=== PATIENT | female | born 1935 | race Caucasian/White ===

== ENCOUNTER → 2024-02-23 09:13 | Outpatient (REF) | payer MEDICARE, OTHER, SELFPAY ==
[2024-02-23 12:42] LABS: % Basophils 0.6 % (0-2); % Eosinophils 2.7 % (0-6); % Immature Granulocytes 0.4 % (0-0.5); % Lymphocytes 18.5 % (20.5-51.1); % Monocytes 10.9 % (1.7-9.3); % Neutrophils 66.9 % (42.2-75.2); Absolute Eosinophils 0.1 10^3/uL (0-0.7); Absolute Monocytes 0.6 10^3/uL (0.1-0.6); Absolute Neutrophils 3.4 10^3/uL (1.4-6.5); Hematocrit 31.2 % (37.0-47.0); Hemoglobin 9.7 g/dL (12.0-16.0); Mean Corp Hgb Conc. 31.1 g/dL (33.0-37.0); Mean Corpuscular Hgb 30.9 pg (27.0-31.0); Mean Corpuscular Volume 99.4 fL (81.0-99.0); Nucleated Red Blood Cells % 0 %; Platelet Count 140 10^3/uL (130-400); Red Blood Cell Count 3.14 10^6/uL (4.20-5.40); Red Cell Dist. Width 14.1 % (11.5-14.5); White Blood Cell Count 5.1 10^3/uL (4.8-10.8)
[2024-02-23 13:25] LABS: ALT (SGPT) 24 U/L (0-35); AST (SGOT) 27 U/L (14-36); Albumin 4.5 g/dl (3.5-5.0); Alkaline Phosphatase 93 U/L (38-126); Blood Urea Nitrogen 23 mg/dl (7-17); Calcium 10.4 mg/dl (8.4-10.2); Carbon Dioxide 33 mmol/L (22-30); Chloride 98 mmol/L (98-107); Glucose 93 mg/dl (70-99); HDL Cholesterol 45 mg/dl; Iron 74 ug/dl (37-170); LDL Cholesterol, Calculated 20 mg/dl; Potassium 4.2 mmol/L (3.5-5.1); Sodium 141 mmol/L (135-145); Total Bilirubin 0.8 mg/dl (0.2-1.3); Total Cholesterol 78 mg/dl (50-199); Total Protein 7.8 g/dl (6.3-8.2); Triglyceride 69 mg/dl (10-149); Very Low Density Lipoprotein 13 mg/dl (0-30); eGFR 40.05
[2024-02-23 13:34] LABS: Percent Saturation 40 % (20-50); Total Iron Binding Capacity 184 ug/dl (265-497)
[2024-02-23 13:54] LABS: TSH Reflex To Free T4 0.14 uIU/ml (0.47-4.68)
[2024-02-23 14:21] LABS: Free T4 1.81 ng/dl (0.78-2.19)
== END ==
LOC: HWLAB 09:13
PROVIDERS: ATTENDING PHYSICIAN Family Medicine
DX: R53.82 Chronic fatigue, unspecified (principal); R26.9 Unspecified abnormalities of gait and mobility; D64.9 Anemia, unspecified; I48.91 Unspecified atrial fibrillation; D68.69 Other thrombophilia; I50.41 Acute combined systolic (congestive) and diastolic (congestive) heart failure; L30.8 Other specified dermatitis
CPT/HCPCS: 36415; 80053; 80061; 82728; 83540; 83550; 84439; 84443; 85025

== ENCOUNTER → 2024-03-30 08:12 | Outpatient (REF) | payer MEDICARE, OTHER, SELFPAY ==
[2024-03-30 11:28] LABS: % Basophils 0.6 % (0-2); % Eosinophils 2.8 % (0-6); % Immature Granulocytes 0.4 % (0-0.5); % Monocytes 9.6 % (1.7-9.3); % Neutrophils 65.6 % (42.2-75.2); Absolute Eosinophils 0.1 10^3/uL (0-0.7); Absolute Monocytes 0.5 10^3/uL (0.1-0.6); Absolute Neutrophils 3.1 10^3/uL (1.4-6.5); Hematocrit 30.8 % (37.0-47.0); Hemoglobin 9.6 g/dL (12.0-16.0); Mean Corp Hgb Conc. 31.2 g/dL (33.0-37.0); Mean Corpuscular Hgb 30.6 pg (27.0-31.0); Mean Corpuscular Volume 98.1 fL (81.0-99.0); Mean Platelet Volume 10.9 fL (7.4-10.4); Nucleated Red Blood Cells % 0 %; Platelet Count 144 10^3/uL (130-400); Red Blood Cell Count 3.14 10^6/uL (4.20-5.40); Red Cell Dist. Width 13.6 % (11.5-14.5); White Blood Cell Count 4.7 10^3/uL (4.8-10.8)
[2024-03-30 12:04] LABS: Digoxin 0.7 ng/ml (0.8-2.0); Iron 54 ug/dl (37-170)
[2024-03-30 12:12] LABS: Percent Saturation 27 % (20-50); Total Iron Binding Capacity 198 ug/dl (265-497)
== END ==
LOC: HWLAB 08:12
PROVIDERS: ATTENDING PHYSICIAN Internal Medicine Cardiovascular Disease; FAMILY PHYSICIAN Family Medicine; REFERRING PHYSICIAN Specialist
DX: I49.5 Sick sinus syndrome (principal); I10 Essential (primary) hypertension; D50.0 Iron deficiency anemia secondary to blood loss (chronic)
CPT/HCPCS: 36415; 80162; 82728; 83540; 83550; 85025

== ENCOUNTER → 2024-06-08 08:29 | Outpatient (REF) | payer MEDICARE, OTHER, SELFPAY | LOC: HWRCS 08:29 | PROVIDERS: ATTENDING PHYSICIAN Internal Medicine Cardiovascular Disease; FAMILY PHYSICIAN Family Medicine | DX: I35.0 Nonrheumatic aortic (valve) stenosis (principal); I50.32 Chronic diastolic (congestive) heart failure | CPT/HCPCS: 93306 ==

== ENCOUNTER → 2024-06-08 14:03 | Outpatient (REF) | payer MEDICARE, OTHER, SELFPAY | LOC: RAD 14:03 | PROVIDERS: ATTENDING PHYSICIAN Internal Medicine Cardiovascular Disease; FAMILY PHYSICIAN Family Medicine | DX: R60.0 Localized edema (principal) | CPT/HCPCS: 93970 ==

== ENCOUNTER → 2024-07-02 09:59 | Outpatient (REF) | payer MEDICARE, OTHER, SELFPAY ==
[2024-07-02 13:14] LABS: Blood Urea Nitrogen 31 mg/dl (7-17); Calcium 10.3 mg/dl (8.4-10.2); Carbon Dioxide 35 mmol/L (22-30); Chloride 96 mmol/L (98-107); Glucose 104 mg/dl (70-99); Potassium 4.2 mmol/L (3.5-5.1); Sodium 139 mmol/L (135-145); eGFR 36.64
== END ==
LOC: HWLAB 09:59
PROVIDERS: ATTENDING PHYSICIAN Internal Medicine Cardiovascular Disease; FAMILY PHYSICIAN Family Medicine
DX: I07.1 Rheumatic tricuspid insufficiency (principal)
CPT/HCPCS: 36415; 80048

== ENCOUNTER → 2024-08-23 12:01 | Outpatient (REF) | payer MEDICARE, OTHER, SELFPAY ==
[2024-08-23 15:22] LABS: ALT (SGPT) 32 U/L (0-35); AST (SGOT) 34 U/L (14-36); Albumin 4.6 g/dl (3.5-5.0); Alkaline Phosphatase 70 U/L (38-126); Blood Urea Nitrogen 27 mg/dl (7-17); Calcium 10.3 mg/dl (8.4-10.2); Carbon Dioxide 30 mmol/L (22-30); Chloride 103 mmol/L (98-107); Glucose 90 mg/dl (70-99); HDL Cholesterol 41 mg/dl; Iron 68 ug/dl (37-170); LDL Cholesterol, Calculated 29 mg/dl; Potassium 4.4 mmol/L (3.5-5.1); Sodium 146 mmol/L (135-145); Total Bilirubin 0.7 mg/dl (0.2-1.3); Total Cholesterol 82 mg/dl (50-199); Total Protein 7.8 g/dl (6.3-8.2); Triglyceride 61 mg/dl (10-149); Very Low Density Lipoprotein 12 mg/dl (0-30); eGFR 40.05
[2024-08-23 15:29] LABS: % Basophils 0.9 % (0-2); % Eosinophils 3.4 % (0-6); % Immature Granulocytes 0.4 % (0-0.5); % Lymphocytes 19.6 % (20.5-51.1); % Monocytes 10.3 % (1.7-9.3); % Neutrophils 65.4 % (42.2-75.2); Absolute Eosinophils 0.2 10^3/uL (0-0.7); Absolute Lymphocytes 0.9 10^3/uL (1.2-3.4); Absolute Monocytes 0.5 10^3/uL (0.1-0.6); Hematocrit 29.2 % (37.0-47.0); Hemoglobin 9.5 g/dL (12.0-16.0); Mean Corp Hgb Conc. 32.5 g/dL (33.0-37.0); Mean Corpuscular Hgb 30.7 pg (27.0-31.0); Mean Corpuscular Volume 94.5 fL (81.0-99.0); Nucleated Red Blood Cells % 0 %; Platelet Count 138 10^3/uL (130-400); Red Blood Cell Count 3.09 10^6/uL (4.20-5.40); Red Cell Dist. Width 13.4 % (11.5-14.5); White Blood Cell Count 4.6 10^3/uL (4.8-10.8)
[2024-08-23 15:32] LABS: Percent Saturation 36 % (20-50); Total Iron Binding Capacity 185 ug/dl (265-497)
[2024-08-23 15:54] LABS: TSH Reflex To Free T4 0.23 uIU/ml (0.47-4.68)
[2024-08-23 15:56] LABS: Urine Albumin Trace (Neg - Trace); Urine Bilirubin Negative (Negative); Urine Character Clear (Clear); Urine Color Yellow; Urine Glucose 3+ (Negative); Urine Ketone Negative (Negative); Urine Leukocyte 2+ (Negative); Urine Nitrite Negative (Negative); Urine Occult Blood Negative (Negative); Urine Specific Gravity 1.015 (<1.030); Urine Urobilinogen Negative (Neg - 1+)
[2024-08-23 16:15] LABS: Urine Bacteria Many (Negative); Urine Red Blood Cell 0-2 /HPF (0-2)
[2024-08-23 16:20] LABS: Free T4 1.61 ng/dl (0.78-2.19)
[2024-08-23 16:28] LABS: Folate > 20.0 ng/ml (2.76-20); Vitamin B12 396 pg/ml (239-931)
== END ==
LOC: HWLAB 12:01
PROVIDERS: ATTENDING PHYSICIAN Family Medicine
DX: I10 Essential (primary) hypertension (principal); Z71.89 Other specified counseling; Z68.20 Body mass index [BMI] 20.0-20.9, adult; Z13.9 Encounter for screening, unspecified; E03.9 Hypothyroidism, unspecified; D64.9 Anemia, unspecified; E78.2 Mixed hyperlipidemia; I48.91 Unspecified atrial fibrillation; E53.8 Deficiency of other specified B group vitamins
CPT/HCPCS: 36415; 80053; 80061; 81003; 81015; 82607; 82728; 82746; 83540; 83550; 84439; 84443; 85025

== ENCOUNTER 2025-03-21 13:23 | Inpatient (IN) | payer MEDICARE, OTHER, SELFPAY ==
[2025-03-21] VITALS (23 sets, daily range): BP systolic 62–180; BP diastolic 47–73; BMI 18.7
[2025-03-21 10:04] LABS: % Basophils 0.5 % (0-2); % Eosinophils 3.1 % (0-6); % Immature Granulocytes 0.5 % (0-0.5); % Lymphocytes 14.8 % (20.5-51.1); % Monocytes 8.6 % (1.7-9.3); % Neutrophils 72.5 % (42.2-75.2); Absolute Eosinophils 0.2 10^3/uL (0-0.7); Absolute Lymphocytes 0.9 10^3/uL (1.2-3.4); Absolute Monocytes 0.5 10^3/uL (0.1-0.6); Absolute Neutrophils 4.2 10^3/uL (1.4-6.5); Hematocrit 29.1 % (37.0-47.0); Hemoglobin 9.2 g/dL (12.0-16.0); Mean Corp Hgb Conc. 31.6 g/dL (33.0-37.0); Mean Corpuscular Hgb 31.1 pg (27.0-31.0); Mean Corpuscular Volume 98.3 fL (81.0-99.0); Nucleated Red Blood Cells % 0 %; Platelet Count 141 10^3/uL (130-400); Red Blood Cell Count 2.96 10^6/uL (4.20-5.40); Red Cell Dist. Width 13.4 % (11.5-14.5); White Blood Cell Count 5.8 10^3/uL (4.8-10.8)
[2025-03-21 10:11] LABS: Blood Urea Nitrogen 35 mg/dl (7-17); Calcium 10.4 mg/dl (8.4-10.2); Carbon Dioxide 32 mmol/L (22-30); Chloride 103 mmol/L (98-107); Glucose 102 mg/dl (70-99); Potassium 4.6 mmol/L (3.5-5.1); Sodium 143 mmol/L (135-145)
--- NOTE | 2025-03-21 10:38 | ED.GENMED ---
History of Present Illness
General
Chief Complaint: Rectal Bleeding
Time Seen by Provider: 03/21/25 10:13
History of Present Illness
History of Present Illness:
89-year-old female with history of A-fib status post pacemaker no longer on anticoagulants presents the emergency department for evaluation of bright red rectal bleeding that began this morning. She had an intense urge to have a bowel movement and
noted a large volume of stool and blood intermixed, states that the blood was dark red in color. She reports generalized upper abdominal discomfort at this time which has been ongoing intermittently for the past 3 months. No associated fevers,
chills, sweats, vomiting, or recent diarrhea. Her blood thinner use was discontinued in October according to her daughter.
Past History
Past History
ED Past Medical History: Arrthythmia (Atrial fib), Valvular disease and Hypothyroidism
ED Past Surgical History: Appendectomy and Cardiac (Pacemaker)
Social History
Tobacco: Non-smoker
Alcohol: None
Personal:
Living: with family
Review of Systems
Review of Systems
Allergies reviewed?: Yes
All Other Systems: ROS reviewed and negative except as documented in HPI and ROS
Phy Exam
Physical Exam
Physical Exam:
GEN: Well appearing, NAD, WDWN
HEENT: Oral mucosa moist, no scleral icterus
Cardiac: Regular rate
Lung: No respiratory distress, no tachypnea
Abdomen: Soft, tenderness to the epigastrium noted
Rectum: Large amount of maroon stool in the rectal vault, heme positive
MSK: No gross deformity or injuries
Skin: Good color, no pallor or jaundice, no rashes
Neuro: AO x3, moves all extremities freely
Psych: Calm, cooperative
Course
Orders/Labs/Results
Orders:
Orders
03/21/25 09:43
Type+Screen Urgent
BMP [Basic Metabolic Panel] Urgent
Complete Blood Count/With Diff Urgent
Ferritin Urgent
Folate Urgent
Iron Urgent
Total Iron Binding Urgent
Vitamin B12 Urgent
Comment: ADD ON
03/21/25 10:37
CT Abd/pelvis Angio W/wo Iv Urgent
Comment:
Reason For Exam: rectal bleeding/abd pain
03/21/25 13:12
Admit/Transfer Patient As Directed
Co-Sign Provider:
Level of Care: Inpatient admission
Assign to:: IMU- Intermediate Care
Physician / Group: Audi
Diagnosis: GI Bleed
Reason for Hospitalization: GI Bleed
Expected length of stay greater than two midnights?: Yes
ELOS- Estimated Length of Stay in days: 3
I certify the patient meets the requirements for IP care: Yes
[facility] CONSULT Urgent
Consulting Provider: Blas Anand
Was physician already notified: Yes
Procedure being ordered, including laterality if applicable: coil embolization large bowel hemorrhage
Acknowledgement that appropriate orders are entered: Yes
PRN Pain Medication Management As Directed
May give lesser potent ordered pain med per pt: Yes
preference::
Protocol:: Medication orders for pain may be administered in a
manner that supports deferring to patient preference
when the pt is:
- Requesting an ordered lesser potent pain medication.
Least to most potent pain medications are defined
as: acetaminophen < NSAID < tramadol < opioids
(morphine, oxycodone, hydromorphone).
- Requesting a lesser dose of the same medication IF
ORDERED.
- Requesting a less intrusive route of administration
if both routes are prescribed by the provider (PO <
IV).
03/21/25 13:14
Code Status As Directed
Resuscitation Status: Full Code
03/21/25 13:17
Add On- LAB Urgent
Tests Added?: iron, ferritin, tibc, folate, vit b12
03/21/25 16:00
H&H Q6H
03/21/25 22:00
H&H Q6H
03/22/25 04:00
H&H Q6H
03/22/25 10:00
H&H Q6H
Abnormal Lab Results
03/21/25
09:43
RBC 2.96 L 10^6/uL
(4.20-5.40)
Hgb 9.2 L g/dL
(12.0-16.0)
Hct 29.1 L %
(37.0-47.0)
MCH 31.1 H pg
(27.0-31.0)
MCHC 31.6 L g/dL
(33.0-37.0)
MPV 11.0 H fL
(7.4-10.4)
Absolute Lymphs (auto) 0.9 L 10^3/uL
(1.2-3.4)
Lymphocytes % 14.8 L %
(20.5-51.1)
Carbon Dioxide 32 H mmol/L
(22-30)
BUN 35 H mg/dl
(7-17)
Creatinine 1.3 H mg/dL
(0.6-1.0)
Glucose 102 H mg/dl
(70-99)
Calcium 10.4 H mg/dl
(8.4-10.2)
TIBC 199 L ug/dl
(265-497)
03/21/25 09:43
03/21/25 09:43
Vital Signs
Initial and Last Documented VS:
Initial Vital Signs
Temp Pulse Resp BP Pulse Ox
97.8 F 59 18 160/66 92
03/21/25 09:03 03/21/25 09:03 03/21/25 09:03 03/21/25 09:03 03/21/25 09:03
Last Documented Vital Signs
Temp Pulse Resp BP Pulse Ox
98.2 F 62 19 140/57 95
03/21/25 14:55 03/21/25 14:55 03/21/25 14:55 03/21/25 14:55 03/21/25 14:55
MDM/Problems Addressed
MDM/Problems Addressed:
Case was reviewed with interventional radiology and the decision was made after discussion with the patient, she will go to IR for coil embolization and ultimately be admitted thereafter
*Critical Care Note
Total Time (30-74mins, 75-104mins- exclusive of procedures): Not Applicable
ED Attending Note
-
Portions of this chart may have been created with voice recognition software.� Occasional wrong word or��sound alike� substitutions may have occurred due to the inherent limitations of voice recognition software.
Discharge Plan
Departure
Patient Disposition: Admit
Date of Disposition: 03/21/25
Time of Disposition: 12:35
Presentation/result/management discussed w/ accepting MD/DO: Hospitalist
Discharge Problem:
Acute lower GI hemorrhage
Interventions
Interventions:
*Risk Screen - Suicide Last Done: 03/21/25 09:03
*General Assessment Last Done: 03/21/25 10:20
*Neglect/Abuse Screening Last Done: 03/21/25 09:03
*ED- Fall Risk Assessment Last Done: 03/21/25 09:09
*ED COVID-19 Vaccine History Last Done: 03/21/25 10:20
*Nursing Disposition Last Done: 03/21/25 14:52
GC-Rlvvtb-Jlfszidasl Assessment Last Done: 03/21/25 11:13
ED- Cardiac Assessment Last Done: 03/21/25 11:13
ED- Pulmonary Assessment Last Done: 03/21/25 11:13
Discharge Date and Time
Discharge Date/Time: 03/21/25 14:53
--- NOTE | 2025-03-21 12:39 | HPS.HSE ---
Family Physician
-
Family Physician: Gema Wall, DO
Chief Complaint
-
Rectal Bleeding
History of Present Illness
Patient is an 89 y/o female past medical history of paroxysmal atrial fibrillation no longer anticoagulation, chronic heart failure, hypertension, and chronic anemia who presents with rectal bleeding. Patient reports this morning she had an intense
urge to move her bowels. In the toilet she noted a large volume of stool mixed with blood described as dark red in color. Patient reports prior episodes of hemorrhoidal bleeding but notes this was much more blood than that. She reports just the
one episode of bleeding. She admits to mild epigastric abdominal discomfort on and off for the past few months, but notes it was worse today about the bleeding started.
Medical History
Past Medical History
Past Medical History: Reports Other
Additional Past Medical History:
Paroxysmal Atrial Fibrillation / Flutter / Tachycardia
Chronic HFpEF
Essential Hypertension
Hyperlipidemia
CKD Stage IIIB
Chronic Anemia
Post-Surgical Hypothyroidism
Depression
Past Surgical History: Reports Other
Additional Past Surgical History:
Permanent Pacemaker
Thyroidectomy
Hysterectomy
Appendectomy
Social History
Tobacco: Non-smoker
Alcohol: None
Living: Alone
Family History
Family History: Not pertinent
Allergies / Home Medications
Allergies reflects when Allergies were last updated in [facility].
Home Medications with original date entered in [facility]
Allergy/Medication List:
Allergies
Allergy/AdvReac Type Severity Reaction Status Date / Time
amoxicillin [From Augmentin] Allergy Hives Verified 09/17/22 21:22
clavulanic acid Allergy Hives Verified 09/17/22 21:22
[From Augmentin]
Home Medications
cholecalciferol (vitamin D3) 25 mcg (1,000 unit) tablet (Vitamin D3) 25 mcg PO QPM Supplement 09/12/22
digoxin 125 mcg (0.125 mg) tablet 125 mcg PO DAILY Heart disease/condition 09/12/22
docusate sodium 100 mg capsule (Stool Softener) 100 mg PO BID Constipation 09/12/22
latanoprost 0.005 % eye drops 1 drp RIGHT EYE HS Eye condition 09/12/22
levothyroxine 125 mcg tablet 125 mcg PO DAILY AT 0700 Thyroid 09/12/22
sertraline 100 mg tablet 100 mg PO HS Depression 09/12/22
atorvastatin 40 mg tablet 40 mg PO QPM 30 days #30 tabs 09/28/22
dapagliflozin propanediol 10 mg tablet (Farxiga) 10 mg PO DAILY 30 days #30 tabs 09/28/22
ferrous sulfate 325 mg (65 mg iron) tablet (FeroSul) 325 mg PO DAILY 100 days #100 tabs 09/28/22
furosemide 20 mg tablet 20 mg PO DAILYPRN PRN edema 03/31/23
diltiazem HCl 180 mg capsule,extended release 24 hr 180 mg PO DAILY 05/12/23
metoprolol tartrate 25 mg tablet 25 mg PO BID 03/21/25
Review of Systems
-
A 12 point ROS was completed and negative except as noted: Yes
Constitutional: Denies Fever
Respiratory: Denies Cough
Cardiac: Reports Palpitations (Last week); Denies Chest Pain
Physical Exam
Vital Signs
Vital Signs
Temp Pulse Resp BP Pulse Ox
97.8 F 64 16 127/48 92
03/21/25 09:03 03/21/25 12:00 03/21/25 12:00 03/21/25 12:00 03/21/25 09:03
Physical Exam
General: Comfortable and Conversant
HEENT: Anicteric and Moist mucous membranes
Respiratory: Clear and Non Labored Respirations
Cardiac: S1/S2, Regular Rhythm and Murmur
GI: Soft and Tender (Epigastric without rebound or guarding)
Musculoskeletal: No Clubbing, No Cyanosis and No Edema
Skin: Warm and Dry
Neuro: Awake, Alert, Oriented and Nonfocal/grossly intact
Psych: Calm
Laboratory Results
-
03/21/25 09:43
03/21/25 09:43
Data Reviewed
-
Lab Data: Labs Reviewed by me
Old Records: Reviewed
Impression/Plan
-
Acute Lower GI Bleed
-CTA positive for small volume active bleeding in the transverse colon
-IR planning for coil embolization this afternoon
-Continue NPO / IVFs
-Consult GI
Chronic Normocytic Anemia
-Hgb is currently stable but suspect will trend down in setting of GI bleed
-Check iron studies
-Blood consent obtained and scanned into chart
Paroxysmal Atrial Fibrillation / Flutter / Tachycardia s/p Permanent Pacemaker
-Patient has not been on anticoagulation since Oct 2023 due to bleeding/fall risk
-Continue digoxin, diltiazem and metoprolol
Chronic HFpEF
-Hold Lasix and Farxiga
-Monitor Daily Weights
Essential Hypertension
-Continue diltiazem and metoprolol with hold parameters
Hyperlipidemia
-Continue atorvastatin
Post-Surgical Hypothyroidism
-Continue levothyroxine
Depression
-Continue sertraline
DVT Proph: SCDs
Code Status: Full Code
--- NOTE | 2025-03-21 13:54 | CON.GI ---
Addendum entered and electronically signed by Chapito Finn MD 03/21/25 16:35:
I saw and examined the patient.
The HOT REPAIRMAN or PA's note was reviewed and I agree with the note.
Comment:
This patient is an 89-year-old woman with history of A-fib not on anticoagulation also with a history of duodenal AVMs who was admitted for bright red blood per rectum. She did have a bright red blood per rectum and abdominal pain which stopped
which has since stopped. A CTA did show slow mount of active bleeding in the transverse colon.
awake, no distress
impression:
GIB
anemia
plan:
- This patient was taken for interventional radiology embolization. I did discuss with Dr. Anand who performed the procedure. He states that there was no active bleeding at the time of the procedure. He also did review with me that CAT scan
which did definitively show only a small amount in the transverse colon.
- Follow hemoglobin
- Further evaluation and treatment based on clinical course.
Original Note:
Consultation
-
Date/Time Consultation Requested: 03/21/25 1339
Date/Time Consultation Performed: 03/21/25 1349
Requesting Provider: MITCHELL Gibson
Performing Provider: Dr. Finn/RADHA Lam
Reason for Consultation: lower GI Bleed
Medical History
Chief Complaint / HPI
Chief Complaint: rectal bleeding
History of Present Illness:
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
of bright red blood per rectum. We are asked to evaluate for acute lower GI bleed.The patient states that she awoke at 7 AM this morning with an urgency to have bowel movement. She states she almost did not make it to the bathroom. She states
that she had a very large episode of bright red blood. She has some abdominal discomfort across the upper mid abdomen that is a dull discomfort. Otherwise she denies any fevers, chills, nausea, vomiting, melena, dysphagia or dyne aphasia. No
early satiety or unintentional weight loss. She does state that intermittently prior to this episode she would have that vague discomfort that would not be isolated to any particular event. She did state that she was recently placed on Farxiga
with constipation. She started taking Colace twice a day with improvement of her constipation.
Past Medical History
Past Medical History: Other (HTN, hypothyroidism, CHF, Wt loss, Anemia, SVT, iron deficiency anemia, mild aortic stenosis, depression, A-fib (not on anticoagulation), duodenal angiectasia status post cautery with APC, nonocclusive CAD, pneumonia)
Past Surgical History: Other (Thyroidectomy, hysterectomy, appendectomy, pacemaker)
Social History
Tobacco: Non-Smoker
Alcohol: None
Drug: None
Personal: Single
Living: Alone
Family History
Family History: Other (Denies FH of CRC)
Allergies / Home Medications
Allergy/AdvReac Type Severity Reaction Status Date / Time
amoxicillin [From Augmentin] Allergy Hives Verified 09/17/22 21:22
clavulanic acid Allergy Hives Verified 09/17/22 21:22
[From Augmentin]
�Medication �Instructions �Recorded
cholecalciferol (vitamin D3) 25 25 mcg PO QPM Supplement 09/12/22
mcg (1,000 unit) tablet (Vitamin
D3)
digoxin 125 mcg (0.125 mg) tablet 125 mcg PO DAILY Heart 09/12/22
disease/condition
docusate sodium 100 mg capsule 100 mg PO BID Constipation 09/12/22
(Stool Softener)
latanoprost 0.005 % eye drops 1 drp RIGHT EYE HS Eye condition 09/12/22
levothyroxine 125 mcg tablet 125 mcg PO DAILY AT 0700 Thyroid 09/12/22
sertraline 100 mg tablet 100 mg PO HS Depression 09/12/22
atorvastatin 40 mg tablet 40 mg PO QPM 30 days #30 tabs 09/28/22
dapagliflozin propanediol 10 mg 10 mg PO DAILY 30 days #30 tabs 09/28/22
tablet (Farxiga)
ferrous sulfate 325 mg (65 mg 325 mg PO DAILY 100 days #100 tabs 09/28/22
iron) tablet (FeroSul)
furosemide 20 mg tablet 20 mg PO DAILYPRN PRN edema 03/31/23
diltiazem HCl 180 mg 180 mg PO DAILY 05/12/23
capsule,extended release 24 hr
metoprolol tartrate 25 mg tablet 25 mg PO BID 03/21/25
Review of Systems
-
All other systems: A 12 pt ROS was Negative except as stated above in HPI
Vital Signs
Temp Pulse Resp BP Pulse Ox
97.8 F 65 16 134/54 95
03/21/25 09:03 03/21/25 13:30 03/21/25 13:30 03/21/25 13:00 03/21/25 12:15
Physical Exam
Exam
General: No Apparent Distress
HEENT: Anicteric
Respiratory: Clear
Cardiac: Regular Rhythm
GI: Soft, Non Distended, Normal Bowel Sounds and Tender (Mild tenderness in the upper mid abdomen)
Rectal: Hem Positive (Rectal exam performed by ER showing large amount of maroon stool in the rectal vault. Heme positive)
Musculoskeletal: No Edema
Skin: Warm and Dry
Neuro: AO x 3
Psych: Calm
Results
WBC 5.8 10^3/uL (4.8-10.8) 03/21/25 09:43
Hgb 9.2 g/dL (12.0-16.0) L 03/21/25 09:43
Hct 29.1 % (37.0-47.0) L 03/21/25 09:43
MCV 98.3 fL (81.0-99.0) 03/21/25 09:43
Plt Count 141 10^3/uL (130-400) 03/21/25 09:43
Absolute Neuts (auto) 4.2 10^3/uL (1.4-6.5) 03/21/25 09:43
Sodium 143 mmol/L (135-145) 03/21/25 09:43
Potassium 4.6 mmol/L (3.5-5.1) 03/21/25 09:43
Chloride 103 mmol/L (98-107) 03/21/25 09:43
Carbon Dioxide 32 mmol/L (22-30) H 03/21/25 09:43
BUN 35 mg/dl (7-17) H 03/21/25 09:43
Creatinine 1.3 mg/dL (0.6-1.0) H 03/21/25 09:43
Calcium 10.4 mg/dl (8.4-10.2) H 03/21/25 09:43
Diagnostic Image Results:
CTA abdomen and pelvis with angio:
IMPRESSION:
Findings suspicious for small volume active bleeding in the distal transverse colon.
Large volume colonic stool including solid and liquid stool.
Cholelithiasis.
Small simple right renal cyst. Additional subcentimeter low-attenuation right renal lesion too small to characterize.
Prior GI Procedures:
EGD: 09/20/2022 EGD (Dr. Thrasher)
Impression: - Normal esophagus.
- Normal stomach.
- A single bleeding angioectasia in the duodenum.
Treated with argon plasma coagulation (APC).
- No specimens collected.
Colonoscopy: 09/27/2022 colonoscopy (Dr. Finn): - Redundant colon.
- Diverticulosis in the sigmoid colon.
- Internal hemorrhoids.
- No specimens collected.
Assessment / Plan
-
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
bright red blood per rectum. We are asked to evaluate for acute lower GI bleed. Patient with 1 episode of bright red blood per rectum. None since arrival. She has some mild upper abdominal discomfort. She states this has been occurring on and
off for couple months. Not associated with any other symptoms in particular. She is on oral iron. She is not on any anticoagulation or antiplatelet therapy. She denies any NSAIDs. Currently WBC 5.8, hemoglobin 9.2, hematocrit 21.9, platelets
141. Patient's baseline hemoglobin is in the 9 range. The patient is agreeable to blood products if needed. Sodium 143, potassium 4.6, BUN 35, creatinine 1.3, iron studies pending CTA of the abdomen and pelvis was performed that shows findings
suspicious for small volume active bleeding in the distal transverse colon. Large volume colonic stool including solid and liquid stool. (Other details from imaging will be provided above). Patient has been NPO since last evening. VSS, patient is
beta blocked.
Impression:
Active acute GI bleed with CT angio positive in the distal transverse colon.
Mild upper abdominal discomfort
Large volume colonic stool solid and liquid.
Constipation since starting Farxiga with stool softener as needed
Chronic anemia on oral iron
Plan:
-IR consulted and planned intervention
-Trend Hgb, transfuse to keep Hgb > 7
-Will continue to monitor patient.
-Colonoscopy (2021) in past (redundant) but with sigmoid diverticulosis.
-Will need bowel regimen after this is resolved.
-Further recommendations to be forthcoming.
-
-
Thank you for consultation and allowing me to participate in the patient's care. Please call the information security consultant GI physician during the after hours with any questions or concerns.
[2025-03-21 14:20] LABS: Iron 67 ug/dl (37-170)
[2025-03-21 14:29] LABS: Percent Saturation 33 % (20-50); Total Iron Binding Capacity 199 ug/dl (265-497)
--- NOTE | 2025-03-21 14:53 | EDRN ---
Blood consent tubed to IMU
[2025-03-21 15:04] LABS: INR 1.12; PT 14.9 Sec (11.4-14.6)
[2025-03-21 15:26] LABS: Vitamin B12 319 pg/ml (239-931)
--- NOTE | 2025-03-21 16:31 | W.PN.IRAD.PR ---
Procedure Note
-
Mesenteric arteriogram performed with celiac, SMA, QUENTIN imaging. No active gastrointestinal hemorrhage identified. 5 Fr Mynx closure device deployed at R CF artery access. No immediate complications. VSS throughout.
[2025-03-21] MEDS: D5/0.9% SODIUM CHLORIDE 1000 IV (16:54)
--- NOTE | 2025-03-21 16:55 | W.PN.UPDATE ---
Update Note
Progress Note Update
This is an addendum to the H&P written by Emilee Pinedo on 03/21/2025.� Patient seen and examined independently with PA.
89-year-old female past medical history of chronic iron deficiency anemia, constipation, HFpEF, SVT, paroxysmal atrial fibrillation/flutter with pacemaker recently on Eliquis discontinued since October, CKD, hypothyroidism, depression,
hypertension, presenting with bright red rectal bleeding starting this morning with upper abdominal discomfort.
Vital signs unremarkable.
Labs show hemoglobin of 9.2 which is stable.
CT abdomen pelvis angiogram shows small volume active bleeding in the distal transverse colon.� Large volume colonic stool.� Cholelithiasis.
Patient with acute lower GI bleeding from the transverse colon.� Patient currently hemodynamically stable with stable hemoglobin. IR consulted and to take�for coil embolization. NPO.� GI consulted.� Continue to monitor hemoglobin.� Hold Lasix.
[2025-03-21 17:13] LABS: Hematocrit 24.2 % (37.0-47.0)
--- NOTE | 2025-03-21 18:28 | PTCARENOTE ---
Escorted pt from [facility] to [id number] via monitored bed. Admission completed bedside. AF/25% Vpaced on tele- BP 150s/70s. POx drops to 87% when she falls asleep- 2L NC replaced. Lower abdominal pain 4/10 'tightness' noted- daughter stated she has had
that for a few months now. Incontinent of mod amt dark maroon clots, urine. NPO - swabs provided. IVF infusing as ordered. SCDs placed. Hgb noted next due at 2200.
[2025-03-21] MEDS: LIPITOR 40 MG PO (19:53)
[2025-03-21] MEDS: LOPRESSOR 25 MG PO (19:53)
[2025-03-21] MEDS: ZOLOFT 100 MG PO (21:13)
[2025-03-21] MEDS: XALATAN OPHTHALMIC SOLUTION 1 DROP RIGHT EYE (21:13)
[2025-03-21 22:22] LABS: Hematocrit 25.1 % (37.0-47.0); Hemoglobin 8.1 g/dL (12.0-16.0)
[2025-03-21] MEDS: PROTONIX 20 MG PO (22:43)
[2025-03-22] VITALS (53 sets, daily range): BP systolic 102–166; BP diastolic 43–104; BMI 18.0; BMI 18.5
--- NOTE | 2025-03-22 03:26 | PTCARENOTE ---
Assumed care for patient overnight, received report from jenny RN. V-paced on the monitor. Pt remains on 2L NC. SpO2 96%. Pt had one smear BM that was dark maroon in color. BPs maintaining, last BP 127/60. Pt denies lightheadedness, dizziness, or
fatigue. R groin site is dry and intact with scant old drainage, no signs of bleeding at the site. LE warm and pink, positive pulses. Pt voiding using the bedpan, clear yellow urine. IVF cont. Pt states she was having 'heart burn' RADHA Valdovinos made
aware, a one time order for protonix, pt had relief from symptoms. Pt utilizing the call boo appropriately, call boo is within reach.
[2025-03-22 05:09] LABS: Hemoglobin 7.3 g/dL (12.0-16.0); Mean Corp Hgb Conc. 31.7 g/dL (33.0-37.0); Mean Corpuscular Hgb 31.3 pg (27.0-31.0); Mean Corpuscular Volume 98.7 fL (81.0-99.0); Platelet Count 123 10^3/uL (130-400); Red Blood Cell Count 2.33 10^6/uL (4.20-5.40); Red Cell Dist. Width 13.6 % (11.5-14.5); White Blood Cell Count 5.5 10^3/uL (4.8-10.8)
[2025-03-22 05:14] LABS: Blood Urea Nitrogen 28 mg/dl (7-17); Calcium 9.3 mg/dl (8.4-10.2); Carbon Dioxide 30 mmol/L (22-30); Chloride 108 mmol/L (98-107); Estimated Creatinine Clearance 27 ml/min; Glucose 100 mg/dl (70-99); Potassium 4.3 mmol/L (3.5-5.1); Sodium 144 mmol/L (135-145); eGFR 48.63
--- NOTE | 2025-03-22 05:36 | PTCARENOTE ---
Hgb 7.3 this AM. RADHA Valdovinos made aware, no further orders at this time. Next H&H due for 1000. No bloody BM since last small smear. BP 139/56 HR 65. Weaned to 1L NC SpO2 96%. IVF cont.
[2025-03-22] MEDS: D5/0.9% SODIUM CHLORIDE 1000 IV ×2 (05:39→20:08)
[2025-03-22] MEDS: SYNTHROID 125 MCG PO (06:01)
--- NOTE | 2025-03-22 07:40 | PTCARENOTE ---
On walking rounds pt is asleep, V pacced with underlying AFIB. D5NS at 80 ml infusing as ordered. Pt is NPO may have meds.
--- NOTE | 2025-03-22 09:00 | PTCARENOTE ---
Pt refused am eds she is afraid they will give her epigastric pain
[2025-03-22 10:11] LABS: Hematocrit 22.6 % (37.0-47.0); Hemoglobin 7.2 g/dL (12.0-16.0)
[2025-03-22] MEDS: LOPRESSOR PO (12:44)
[2025-03-22] MEDS: CARDIZEM CD PO (12:44)
[2025-03-22] MEDS: LANOXIN 125 MCG PO (13:54)
--- NOTE | 2025-03-22 15:07 | CM ---
Addendum entered by Luciana Pacheco RN 03/22/25 15:19:
Additionally son Ismael lives a few minutes away from the patient.
He takes patient food shopping.
Original Note:
Patient with Dx Acute Lower GI Bleed s/p transfusions. O2 2L. Full liquids. Receiving IVF.
Met with patient and spoke with daughter Aby by phone;
the patient resides alone in a first floor apartment with ramp access.
The patient was independent in ADLs and ambulation using her SPC.
Patient reports unsteady when on feet, daughter describes ongoing balance problems.
The patient denies any falls.
DME - RW, SPC, CPAP (not using)
Prior [facility]
SNF - none
PCP - Gema Wall
Pharmacy - [facility], [place]
Message to Dr Hernandez requesting PT Eval.
Plan watch for any home O2 needs.
Plan follow up after seen by PT.
--- NOTE | 2025-03-22 15:11 | W.PN.GI.CBS2 ---
Today's Communication / Plan
-
Stat hemoglobin, then transfuse no matter what, ensure good IV access, full liquids for now
Assessment / Plan
-
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
bright red blood per rectum. We are asked to evaluate for acute lower GI bleed. Patient with 1 episode of bright red blood per rectum. None since arrival. She has some mild upper abdominal discomfort. She states this has been occurring on and
off for couple months. Not associated with any other symptoms in particular. She is on oral iron. She is not on any anticoagulation or antiplatelet therapy. She denies any NSAIDs. Currently WBC 5.8, hemoglobin 9.2, hematocrit 21.9, platelets
141. Patient's baseline hemoglobin is in the 9 range. The patient is agreeable to blood products if needed. Sodium 143, potassium 4.6, BUN 35, creatinine 1.3, iron studies pending CTA of the abdomen and pelvis was performed that shows findings
suspicious for small volume active bleeding in the distal transverse colon. Large volume colonic stool including solid and liquid stool. (Other details from imaging will be provided above). Patient has been NPO since last evening. VSS, patient is
beta blocked.
Impression:
Active acute GI bleed with CT angio positive in the distal transverse colon.
Mild upper abdominal discomfort
Large volume colonic stool solid and liquid.
Constipation since starting Farxiga with stool softener as needed
Chronic anemia on oral iron
03/21/2025: IR unable to find bleed found on CT angio
03/22/25: Hemoglobin on 03/21/2025 9.2, baseline in the nines
-- Yesterday evening hemoglobin 8.1, this morning 7.2
-- Will check stat hemoglobin now. Patient is hemodynamically stable. Will give 1 unit of blood after the hemoglobin drawn
-- Okay for full liquids right now
Last colonoscopy in 2021 with sigmoid diverticulosis otherwise redundant--
-- Ensure she has 2 good IVs
Subjective
Subjective
Date of Service: March 22, 2025
Patient has not had any bleeding all day until just recently around 3 PM. I witnessed the blood and it looks to be about 100 cc of dark maroon
Objective
Data Reviewed
Laboratory Data:
Laboratory Results
03/22/25 04:37
Laboratory Results
PT 14.9 Sec (11.4-14.6) H 03/21/25 14:42
INR 1.12 03/21/25 14:42
Vital Signs and I&O:
Vital Signs
Temp Pulse Resp BP Pulse Ox
98.2 F 62 21 122/45 96
03/22/25 12:23 03/22/25 13:54 03/22/25 12:30 03/22/25 12:30 03/22/25 12:30
I&O
03/21/25 03/22/25 03/23/25
06:59 06:59 06:59
Intake Total 960 / 960
Balance 960 / 960
Physical Exam
Physical Exam
HEENT: Anicteric
Pulmonary: Clear
GI: Soft, Non Distended and Non Tender
Extremities: No Edema
Neuro: Non Focal
[2025-03-22 15:51] LABS: Hemoglobin 6.4 g/dL (12.0-16.0)
--- NOTE | 2025-03-22 17:12 | PTCARENOTE ---
DR Mckenna aware of HGB
[2025-03-22] MEDS: LIPITOR 40 MG PO (17:33)
--- NOTE | 2025-03-22 17:40 | W.PN.HOSP.TC ---
Today's Communication/Plan
-
transfuse 1 unit now and check Hgb in AM
Assessment / Plan
Assessment / Plan
Acute Lower GI Bleed
-CTA positive for small volume active bleeding in the transverse colon, Hgb now down to 6.4, will transfuse 1 unit PRBC now
-diet now advanced to full liquids
-Consult GI
Chronic Normocytic Anemia
-Hgb is currently stable but suspect will trend down in setting of GI bleed
-Check iron studies Fe sat 33, Ferritin 173
-Blood consent obtained and scanned into chart
Paroxysmal Atrial Fibrillation / Flutter / Tachycardia s/p Permanent Pacemaker
-Patient has not been on anticoagulation since Oct 2023 due to bleeding/fall risk
-Continue digoxin, diltiazem and metoprolol
Chronic HFpEF
-Hold Lasix and Farxiga
-Monitor Daily Weights
Essential Hypertension
-Continue diltiazem and metoprolol with hold parameters
Hyperlipidemia
-Continue atorvastatin
Post-Surgical Hypothyroidism
-Continue levothyroxine
Depression
-Continue sertraline
DVT Proph: SCDs
Code Status: Full Code
Anticipated Discharge: > 48 hours
Subjective/Interval History
-
Date of Service: March 22, 2025
Pt is obviously weak
Objective Data
-
Labs:
Laboratory Results
03/22/25 03/22/25
10:03 15:35
Hgb 7.2 L 6.4 L*
Hct 22.6 L
Vital Signs:
Vital Signs
Temp Pulse Resp BP Pulse Ox
98.7 F 107 17 131/75 98
03/22/25 16:45 03/22/25 17:00 03/22/25 17:00 03/22/25 17:00 03/22/25 17:00
I&O
03/21/25 03/22/25 03/23/25
06:59 06:59 06:59
Intake Total 960 / 960 0 / 0
Balance 960 / 960 0 / 0
Review of Systems
-
History Source: Patient and Family (reviewed with dgt, Aby Hyatt)
Constitutional: Reports No Symptoms
EENT: Reports No Symptoms Reported
Respiratory: Reports No Symptoms
Cardiac: Reports No Symptoms; Denies Chest Pain
Abdomen/GI: Reports Bloody Stools
Genitourinary: Reports No Symptoms
Physical Exam
-
General: Well Developed and No Apparent Distress; Negative Respiratory Distress
HEENT: Normocephalic and Atraumatic
Respiratory: Clear to Auscultation; Negative Wheezes, Rales or Rhonchi
Cardiac: Regular Rhythm and S1/S2
GI: Soft, Nontender and Nondistended
Musculoskeletal: No Clubbing, No Cyanosis and No Edema
[2025-03-22] MEDS: LOPRESSOR 25 MG PO (20:58)
[2025-03-22] MEDS: XALATAN OPHTHALMIC SOLUTION 1 DROP RIGHT EYE (21:00)
[2025-03-22] MEDS: ZOLOFT 100 MG PO (21:00)
--- NOTE | 2025-03-22 23:16 | PTCARENOTE ---
1 unit PRBC completed around 2029. Pt remains afebrile. IVF cont. RADHA Aruna placed an order for repeat H&H at 0100. Will closely monitor. Pt AAOx3, drowsy. V-paced on the monitor. Weaned to 1L NC SpO2 98%. Assessment and vitals as charted. Call
boo within reach.
[2025-03-23] VITALS (47 sets, daily range): BP systolic 99–173; BP diastolic 40–159; PULSE 60; O2SAT 96; BMI 18.0
[2025-03-23 01:19] LABS: Hematocrit 25.2 % (37.0-47.0)
[2025-03-23 03:55] LABS: % Basophils 0.6 % (0-2); % Eosinophils 2.9 % (0-6); % Immature Granulocytes 0.4 % (0-0.5); % Lymphocytes 20.4 % (20.5-51.1); % Monocytes 10.2 % (1.7-9.3); % Neutrophils 65.5 % (42.2-75.2); Absolute Eosinophils 0.1 10^3/uL (0-0.7); Absolute Monocytes 0.5 10^3/uL (0.1-0.6); Absolute Neutrophils 3.1 10^3/uL (1.4-6.5); Hematocrit 24.9 % (37.0-47.0); Hemoglobin 8.1 g/dL (12.0-16.0); Mean Corp Hgb Conc. 32.5 g/dL (33.0-37.0); Mean Corpuscular Hgb 31.6 pg (27.0-31.0); Mean Corpuscular Volume 97.3 fL (81.0-99.0); Mean Platelet Volume 10.9 fL (7.4-10.4); Nucleated Red Blood Cells % 0 %; Platelet Count 121 10^3/uL (130-400); Red Blood Cell Count 2.56 10^6/uL (4.20-5.40); Red Cell Dist. Width 13.9 % (11.5-14.5); White Blood Cell Count 4.8 10^3/uL (4.8-10.8)
[2025-03-23 04:15] LABS: Blood Urea Nitrogen 22 mg/dl (7-17); Calcium 9.5 mg/dl (8.4-10.2); Carbon Dioxide 29 mmol/L (22-30); Chloride 110 mmol/L (98-107); Estimated Creatinine Clearance 30 ml/min; Glucose 98 mg/dl (70-99); Potassium 4.2 mmol/L (3.5-5.1); Sodium 145 mmol/L (135-145); eGFR 54.53
[2025-03-23] MEDS: SYNTHROID 125 MCG PO (06:18)
--- NOTE | 2025-03-23 08:09 | W.PN.GI.CBS2 ---
Today's Communication / Plan
-
Advance diet to low residue
Monitor stool output
Any increasing upper abdominal pain repeat CT scan with oral contrast
Assessment / Plan
-
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
bright red blood per rectum. We are asked to evaluate for acute lower GI bleed. Patient with 1 episode of bright red blood per rectum. None since arrival. She has some mild upper abdominal discomfort. She states this has been occurring on and
off for couple months. Not associated with any other symptoms in particular. She is on oral iron. She is not on any anticoagulation or antiplatelet therapy. She denies any NSAIDs. Currently WBC 5.8, hemoglobin 9.2, hematocrit 21.9, platelets
141. Patient's baseline hemoglobin is in the 9 range. The patient is agreeable to blood products if needed. Sodium 143, potassium 4.6, BUN 35, creatinine 1.3, iron studies pending CTA of the abdomen and pelvis was performed that shows findings
suspicious for small volume active bleeding in the distal transverse colon. Large volume colonic stool including solid and liquid stool. (Other details from imaging will be provided above). Patient has been NPO since last evening. VSS, patient is
beta blocked.
Impression:
Active acute GI bleed with CT angio positive in the distal transverse colon.
Mild upper abdominal discomfort
Large volume colonic stool solid and liquid.
Constipation since starting Farxiga with stool softener as needed
Chronic anemia on oral iron
03/21/2025: IR unable to find bleed found on CT angio
03/22/25: Hemoglobin on 03/21/2025 9.2, baseline in the nines
-- Yesterday evening hemoglobin 8.1, this morning 7.2
-- Will check stat hemoglobin now. Patient is hemodynamically stable. Will give 1 unit of blood after the hemoglobin drawn
-- Okay for full liquids right now
Last colonoscopy in 2021 with sigmoid diverticulosis otherwise redundant--
-- Ensure she has 2 good IVs
03/23/25: No further bleeding since the 1 episode yesterday and hemoglobin responded too well to the 1 unit of blood. The 6.4 was likely false
6.4-8.1 with 1 unit
Will advance diet to low residue
She does have chronic upper abdominal discomfort which she states has been for years.
Reviewed her imaging again this morning -she does have some hyperemia and wall thickening in the distal transverse colon which fits with her location of discomfort
-- If her discomfort continues or worsens would repeat CT scan with oral contrast
Subjective
Subjective
Date of Service: March 23, 2025
no stools since the one yesterday and hgb over corrected so doubt the 6.4 was accurate.
States weight loss over 4 yrs and upper abdominal tightness x2 yrs that is worsening
Objective
Data Reviewed
Laboratory Data:
Laboratory Results
03/23/25 03:38
03/23/25 03:38
Laboratory Results
PT 14.9 Sec (11.4-14.6) H 03/21/25 14:42
INR 1.12 03/21/25 14:42
Vital Signs and I&O:
Vital Signs
Temp Pulse Resp BP Pulse Ox
97.9 F 60 18 154/52 97
03/23/25 07:45 03/23/25 07:00 03/23/25 07:00 03/23/25 07:00 03/23/25 07:00
I&O
03/22/25 03/23/25 03/24/25
06:59 06:59 06:59
Intake Total 960 / 960 1640 / 1640
Balance 960 / 960 1640 / 1640
[2025-03-23] MEDS: LOPRESSOR 25 MG PO ×2 (08:34→20:42)
[2025-03-23] MEDS: CARDIZEM CD 180 MG PO (08:35)
--- NOTE | 2025-03-23 11:02 | CM ---
Patient chart reviewed
Per nursing she is on room air currently
PT/OT to eval
PLAN: await PT/OT evals
[2025-03-23] MEDS: LANOXIN 125 MCG PO (12:35)
--- NOTE | 2025-03-23 17:57 | W.PN.HOSP.TC ---
Today's Communication/Plan
-
diet advanced to low residue
follow CBC
Assessment / Plan
Assessment / Plan
Acute Lower GI Bleed
-CTA positive for small volume active bleeding in the transverse colon, Hgb was down to 6.4, transfused 1 unit PRBC
-diet now advanced to full liquids
-Consult GI
Chronic Normocytic Anemia
-Hgb is currently stable but suspect will trend down in setting of GI bleed
-Check iron studies Fe sat 33%, Ferritin 173
-Blood consent obtained and scanned into chart
Paroxysmal Atrial Fibrillation / Flutter / Tachycardia s/p Permanent Pacemaker
-Patient has not been on anticoagulation since Oct 2023 due to bleeding/fall risk
-Continue digoxin, diltiazem and metoprolol
Chronic HFpEF
-Hold Lasix and Farxiga
-Monitor Daily Weights
Essential Hypertension
-Continue diltiazem and metoprolol with hold parameters
Hyperlipidemia
-Continue atorvastatin
Post-Surgical Hypothyroidism
-Continue levothyroxine
Depression
-Continue sertraline
DVT Proph: SCDs
Code Status: Full Code
Anticipated Discharge: 24 - 48 hours
Subjective/Interval History
-
Date of Service: March 23, 2025
Appears more comfortable. Concerned about discomfort when swallowing
Objective Data
-
Vital Signs:
Vital Signs
Temp Pulse Resp BP Pulse Ox
98.4 F 60 20 131/54 94
03/23/25 15:36 03/23/25 12:35 03/23/25 09:30 03/23/25 09:30 03/23/25 11:21
I&O
03/22/25 03/23/25 03/24/25
06:59 06:59 06:59
Intake Total 960 / 960 1640 / 1640
Balance 960 / 960 1640 / 1640
Review of Systems
-
History Source: Patient and Coordinated Provider
Constitutional: Reports No Symptoms
EENT: Reports No Symptoms Reported
Respiratory: Reports No Symptoms
Cardiac: Reports No Symptoms; Denies Chest Pain
Abdomen/GI: Reports Bloody Stools
Genitourinary: Reports No Symptoms
Physical Exam
-
General: Well Developed, No Apparent Distress and Other (appears frail); Negative Respiratory Distress
HEENT: Normocephalic and Atraumatic
Respiratory: Clear to Auscultation; Negative Wheezes, Rales or Rhonchi
Cardiac: Regular Rhythm and S1/S2
GI: Soft, Nontender and Nondistended
Musculoskeletal: No Clubbing, No Cyanosis and No Edema
[2025-03-23] MEDS: LIPITOR 40 MG PO (18:40)
--- NOTE | 2025-03-23 19:41 | PTCARENOTE ---
day shift note. see nursing flowsheet. pt has had no bowel movements today. was oob and walked with PT without any dizziness. appetite good but pt c/o pain fom upper chest down to upper abdomen when swallowing. no other complaints noted. gi made
aware.
[2025-03-23] MEDS: XALATAN OPHTHALMIC SOLUTION 1 DROP RIGHT EYE (20:46)
[2025-03-23] MEDS: ZOLOFT 100 MG PO (20:46)
--- NOTE | 2025-03-23 23:21 | PTCARENOTE ---
Pt weaned to room air, SpO2 96%. V-paced on the monitor. Pt ambulating assistance x1 with RW. Pt has no complaints of dizziness, weakness, or lightheadedness. Pt ambulating to the bathroom. Pt complains of heartburn, pt states she 'does not normally
take anything' (for heartburn). Denture care and hygiene done. No BM but flatus. Bowel sounds present. Family at the bedside at change of shift. Pt rings appropriately, and has the call boo within reach.
[2025-03-24] VITALS (11 sets, daily range): BP systolic 121–152; BP diastolic 48–87; BMI 18.1
[2025-03-24] MEDS: SYNTHROID 125 MCG PO (05:29)
[2025-03-24 06:05] LABS: % Basophils 0.6 % (0-2); % Eosinophils 3.8 % (0-6); % Immature Granulocytes 0.2 % (0-0.5); % Lymphocytes 17.3 % (20.5-51.1); % Monocytes 10.2 % (1.7-9.3); % Neutrophils 67.9 % (42.2-75.2); Absolute Eosinophils 0.2 10^3/uL (0-0.7); Absolute Lymphocytes 0.9 10^3/uL (1.2-3.4); Absolute Monocytes 0.5 10^3/uL (0.1-0.6); Absolute Neutrophils 3.4 10^3/uL (1.4-6.5); Hematocrit 25.6 % (37.0-47.0); Hemoglobin 8.1 g/dL (12.0-16.0); Mean Corp Hgb Conc. 31.6 g/dL (33.0-37.0); Mean Corpuscular Hgb 30.9 pg (27.0-31.0); Mean Corpuscular Volume 97.7 fL (81.0-99.0); Mean Platelet Volume 10.7 fL (7.4-10.4); Nucleated Red Blood Cells % 0 %; Platelet Count 118 10^3/uL (130-400); Red Blood Cell Count 2.62 10^6/uL (4.20-5.40); Red Cell Dist. Width 13.5 % (11.5-14.5)
[2025-03-24] MEDS: CARDIZEM CD 180 MG PO (07:23)
[2025-03-24] MEDS: LOPRESSOR 25 MG PO ×2 (07:23→19:46)
--- NOTE | 2025-03-24 08:20 | W.PN.HOSP.TC ---
Today's Communication/Plan
-
transfer to tele
PT/OT
Assessment / Plan
Assessment / Plan
Acute Lower GI Bleed
-CTA positive for small volume active bleeding in the transverse colon, Hgb was down to 6.4, transfused 1 unit PRBC -->8.0-->8.1-->8.1
-diet now advanced to full liquids
-Consulted GI, discussed with Dr. Mckenna
Will transfer to tele
Chronic Normocytic Anemia
-Hgb is currently stable but suspect will trend down in setting of GI bleed
- iron studies Fe sat 33%, Ferritin 173
-Blood consent obtained and scanned into chart
Paroxysmal Atrial Fibrillation / Flutter / Tachycardia s/p Permanent Pacemaker
-Patient has not been on anticoagulation since Oct 2023 due to bleeding/fall risk
-Continue digoxin, diltiazem and metoprolol
left mid chest pain that worsens with eating. Dr. Mckenna to consider imaging study
Chronic HFpEF
-Hold Lasix and Farxiga
-Monitor Daily Weights
potential resumption next 24-48 hrs
Essential Hypertension
-Continue diltiazem and metoprolol with hold parameters
Hyperlipidemia
-Continue atorvastatin
Post-Surgical Hypothyroidism
-Continue levothyroxine
Depression
-Continue sertraline
DVT Proph: SCDs
Code Status: Full Code
Anticipated Discharge: 24 - 48 hours
Subjective/Interval History
-
Date of Service: March 24, 2025
Still with pain on swallowing, states 'feels like sandpaper'
Objective Data
-
Labs:
Laboratory Results
03/24/25
05:41
WBC 5.0
Hgb 8.1 L
Hct 25.6 L
Plt Count 118 L
Vital Signs:
Vital Signs
Temp Pulse Resp BP Pulse Ox
98.2 F 60 13 132/87 98
03/24/25 07:21 03/24/25 07:23 03/24/25 06:00 03/24/25 06:00 03/24/25 06:00
I&O
03/23/25 03/24/25 03/25/25
06:59 06:59 06:59
Intake Total 1640 / 1640 1380 / 1380
Balance 1640 / 1640 1380 / 1380
Review of Systems
-
History Source: Patient and Coordinated Provider
Constitutional: Reports No Symptoms
EENT: Reports No Symptoms Reported
Respiratory: Reports No Symptoms
Cardiac: Reports No Symptoms; Denies Chest Pain
Abdomen/GI: Reports Bloody Stools (prior to admission)
Genitourinary: Reports No Symptoms
Physical Exam
-
General: Well Developed and No Apparent Distress
HEENT: Normocephalic and Atraumatic
Respiratory: Clear to Auscultation; Negative Wheezes, Rales or Rhonchi
Cardiac: Regular Rhythm, S1/S2 and Other (chest wall over area where having pain is nontender to light pressure)
GI: Soft, Nontender and Nondistended
Musculoskeletal: No Clubbing, No Cyanosis and No Edema
--- NOTE | 2025-03-24 09:20 | W.PN.GI.CBS2 ---
Today's Communication / Plan
-
IV fluconazole, [employer] after midnight for esophagram tomorrow
Assessment / Plan
-
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
bright red blood per rectum. We are asked to evaluate for acute lower GI bleed. Patient with 1 episode of bright red blood per rectum. None since arrival. She has some mild upper abdominal discomfort. She states this has been occurring on and
off for couple months. Not associated with any other symptoms in particular. She is on oral iron. She is not on any anticoagulation or antiplatelet therapy. She denies any NSAIDs. Currently WBC 5.8, hemoglobin 9.2, hematocrit 21.9, platelets
141. Patient's baseline hemoglobin is in the 9 range. The patient is agreeable to blood products if needed. Sodium 143, potassium 4.6, BUN 35, creatinine 1.3, iron studies pending CTA of the abdomen and pelvis was performed that shows findings
suspicious for small volume active bleeding in the distal transverse colon. Large volume colonic stool including solid and liquid stool. (Other details from imaging will be provided above). Patient has been NPO since last evening. VSS, patient is
beta blocked.
Impression:
Active acute GI bleed with CT angio positive in the distal transverse colon.
Mild upper abdominal discomfort
Large volume colonic stool solid and liquid.
Constipation since starting with stool softener as needed
Chronic anemia on oral iron
03/21/2025: IR unable to find bleed found on CT angio
03/22/25: Hemoglobin on 03/21/2025 9.2, baseline in the nines
-- Yesterday evening hemoglobin 8.1, this morning 7.2
-- Will check stat hemoglobin now. Patient is hemodynamically stable. Will give 1 unit of blood after the hemoglobin drawn
-- Okay for full liquids right now
Last colonoscopy in 2021 with sigmoid diverticulosis otherwise redundant--
-- Ensure she has 2 good IVs
03/23/25: No further bleeding since the 1 episode yesterday and hemoglobin responded too well to the 1 unit of blood. The 6.4 was likely false
6.4-8.1 with 1 unit
Will advance diet to low residue
She does have chronic upper abdominal discomfort which she states has been for years.
Reviewed her imaging again this morning -she does have some hyperemia and wall thickening in the distal transverse colon which fits with her location of discomfort
-- If her discomfort continues or worsens would repeat CT scan with oral contrast
03/24/2025 patient's main complaint is now odynophagia with solid foods she points to her chest when swallowing
Patient states oropharyngeal candidiasis prior to coming in
I am going to empirically treat her with fluconazole and get an esophagram tomorrow, n.p.o. after midnight for esophagram
No further bleeding hemoglobin stable
Subjective
Subjective
Date of Service: March 24, 2025
No overt bleeding. No bowel movements in a couple of days. Hemoglobin stable
No issues with liquids but with solids she has odynophagia
Patient states she had oral thrush prior to coming in
Objective
Data Reviewed
Laboratory Data:
Laboratory Results
03/24/25 05:41
03/23/25 03:38
Laboratory Results
PT 14.9 Sec (11.4-14.6) H 03/21/25 14:42
INR 1.12 03/21/25 14:42
Vital Signs and I&O:
Vital Signs
Temp Pulse Resp BP Pulse Ox
98.2 F 60 13 132/87 98
03/24/25 07:21 03/24/25 07:23 03/24/25 06:00 03/24/25 06:00 03/24/25 06:00
I&O
03/23/25 03/24/25 03/25/25
06:59 06:59 06:59
Intake Total 1640 / 1640 1380 / 1380
Balance 1640 / 1640 1380 / 1380
Physical Exam
Physical Exam
HEENT: Anicteric and Other (No apparent thrush in the oropharynx)
GI: Soft and Non Tender
Extremities: No Edema
Neuro: Non Focal
[2025-03-24] MEDS: DIFLUCAN 200 MG 100 IV (09:36)
--- NOTE | 2025-03-24 10:39 | PTCARENOTE ---
patient assisted to the bathroom and had a small amount of clotted blood per rectum. no BM noted. still complains of epigastric discomfort exacerbates when eating. MD aware. tele orders noted. patient is back to bed. VSS. call boo within reach.
fall precautions reinforced
[2025-03-24] MEDS: LANOXIN 125 MCG PO (12:20)
[2025-03-24] MEDS: LIPITOR 40 MG PO (18:35)
[2025-03-24] MEDS: ZOLOFT 100 MG PO (22:12)
[2025-03-24] MEDS: XALATAN OPHTHALMIC SOLUTION 1 DROP RIGHT EYE (22:12)
--- NOTE | 2025-03-25 01:28 | PTCARENOTE ---
01:28 pt had medium, soft, formed stool with dark and dl red blood observed in toilet. Pts denies pain at this time , abd is firm on palpation, pt expresses this is not her norm. SCADA ENGINEER was in early at start of shift to assess.
[2025-03-25 03:08] VITALS: BP 138/56
[2025-03-25] MEDS: SYNTHROID 125 MCG PO (05:20)
[2025-03-25 06:00] VITALS: BMI 17.8
[2025-03-25 07:13] LABS: Blood Urea Nitrogen 18 mg/dl (7-17); Carbon Dioxide 34 mmol/L (22-30); Chloride 104 mmol/L (98-107); Estimated Creatinine Clearance 27 ml/min; Glucose 94 mg/dl (70-99); Sodium 143 mmol/L (135-145); eGFR 48.63
[2025-03-25 07:20] VITALS: BP 141/61
[2025-03-25 07:39] LABS: % Basophils 0.7 % (0-2); % Eosinophils 3.9 % (0-6); % Immature Granulocytes 0.4 % (0-0.5); % Lymphocytes 22.3 % (20.5-51.1); % Neutrophils 63.7 % (42.2-75.2); Absolute Eosinophils 0.2 10^3/uL (0-0.7); Absolute Lymphocytes 1.2 10^3/uL (1.2-3.4); Absolute Monocytes 0.5 10^3/uL (0.1-0.6); Absolute Neutrophils 3.6 10^3/uL (1.4-6.5); Hematocrit 27.3 % (37.0-47.0); Hemoglobin 8.6 g/dL (12.0-16.0); Mean Corp Hgb Conc. 31.5 g/dL (33.0-37.0); Mean Corpuscular Hgb 31.6 pg (27.0-31.0); Mean Corpuscular Volume 100.4 fL (81.0-99.0); Mean Platelet Volume 11.2 fL (7.4-10.4); Nucleated Red Blood Cells % 0 %; Platelet Count 141 10^3/uL (130-400); Red Blood Cell Count 2.72 10^6/uL (4.20-5.40); Red Cell Dist. Width 13.5 % (11.5-14.5); White Blood Cell Count 5.6 10^3/uL (4.8-10.8)
[2025-03-25] MEDS: CARDIZEM CD 180 MG PO ×2 (07:51)
[2025-03-25] MEDS: LOPRESSOR 25 MG PO ×2 (07:52→22:04)
[2025-03-25] MEDS: DIFLUCAN 200 MG 50 MG IV (10:28)
--- NOTE | 2025-03-25 10:41 | CM ---
Reviewed the chart notes and spoke with the patient at the bedside. PT recommending home health. Discussed with the patient VN agencies. Patient has had [facility] in past, and in agreement with referral to them. Referral sent in [facility].
continues to be available to patient/family and is monitoring medical plan for needs at discharge.
Plan: Discharge to home with [facility] services.
[2025-03-25 11:15] VITALS: BP 140/56
--- NOTE | 2025-03-25 11:22 | W.PN.GI.CBS2 ---
Today's Communication / Plan
-
-- DC'd fluconazole, started Levaquin Flagyl, low residue diet, low threshold for half prep colonoscopy/flexible sigmoidoscopy
-- Discussed with daughter
Assessment / Plan
-
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
bright red blood per rectum. We are asked to evaluate for acute lower GI bleed. Patient with 1 episode of bright red blood per rectum. None since arrival. She has some mild upper abdominal discomfort. She states this has been occurring on and
off for couple months. Not associated with any other symptoms in particular. She is on oral iron. She is not on any anticoagulation or antiplatelet therapy. She denies any NSAIDs. Currently WBC 5.8, hemoglobin 9.2, hematocrit 21.9, platelets
141. Patient's baseline hemoglobin is in the 9 range. The patient is agreeable to blood products if needed. Sodium 143, potassium 4.6, BUN 35, creatinine 1.3, iron studies pending CTA of the abdomen and pelvis was performed that shows findings
suspicious for small volume active bleeding in the distal transverse colon. Large volume colonic stool including solid and liquid stool. (Other details from imaging will be provided above). Patient has been NPO since last evening. VSS, patient is
beta blocked.
Impression:
Active acute GI bleed with CT angio positive in the distal transverse colon.
Mild upper abdominal discomfort
Large volume colonic stool solid and liquid.
Constipation since starting Farxiga with stool softener as needed
Chronic anemia on oral iron
03/21/2025: IR unable to find bleed found on CT angio
03/22/25: Hemoglobin on 03/21/2025 9.2, baseline in the nines
-- Yesterday evening hemoglobin 8.1, this morning 7.2
-- Will check stat hemoglobin now. Patient is hemodynamically stable. Will give 1 unit of blood after the hemoglobin drawn
-- Okay for full liquids right now
Last colonoscopy in 2021 with sigmoid diverticulosis otherwise redundant--
-- Ensure she has 2 good IVs
03/23/25: No further bleeding since the 1 episode yesterday and hemoglobin responded too well to the 1 unit of blood. The 6.4 was likely false
6.4-8.1 with 1 unit
Will advance diet to low residue
She does have chronic upper abdominal discomfort which she states has been for years.
Reviewed her imaging again this morning -she does have some hyperemia and wall thickening in the distal transverse colon which fits with her location of discomfort
-- If her discomfort continues or worsens would repeat CT scan with oral contrast
03/24/2025 patient's main complaint is now odynophagia with solid foods she points to her chest when swallowing
Patient states oropharyngeal candidiasis prior to coming in
I am going to empirically treat her with fluconazole and get an esophagram tomorrow, n.p.o. after midnight for esophagram
No further bleeding hemoglobin stable
03/25/2025 -patient had burgundy overnight. On rectal exam has soft burgundy stool in the rectal vault questionable residual considering the stability of her hemoglobin -
-- Still with significant left upper quadrant pain
--In the setting of her getting barium with the esophagram and borderline kidney function we will hold off on a CT scan but I am going to empirically treat her for the mild thickening around the splenic flexure that I see on CT scan with antibiotics
Starting Levaquin and Flagyl in the setting of her penicillin allergy
I stop the fluconazole as the mucosa on the esophagram looks very normal
Esophagram is normal other than some mild slow motility
Restart low residue diet
Discussed potentially doing a extended flexible sigmoidoscopy but patient is unwilling to do any type of prep for colonoscopy -can do some mag citrate and enemas -will see how she does
Patient is stable for physical therapy at this point
-- Spoke to daughterEdgard over the phone
Subjective
Subjective
Date of Service: March 25, 2025
Per nursing patient had a good sized mixed brown burgundy stool last night. Hemoglobin stable. Esophagram done this morning. Patient still complaining of left upper quadrant pain
Objective
Data Reviewed
Laboratory Data:
Laboratory Results
03/25/25 06:09
03/25/25 06:09
Laboratory Results
PT 14.9 Sec (11.4-14.6) H 03/21/25 14:42
INR 1.12 03/21/25 14:42
Vital Signs and I&O:
Vital Signs
Temp Pulse Resp BP Pulse Ox
98.9 F 60 18 141/61 94
03/25/25 07:20 03/25/25 07:51 03/25/25 07:20 03/25/25 07:51 03/25/25 07:20
I&O
03/24/25 03/25/25 03/26/25
06:59 06:59 06:59
Intake Total 1380 / 1380 240 / 240
Balance 1380 / 1380 240 / 240
Physical Exam
Physical Exam
HEENT: Anicteric
GI: Soft and Tender (Tender in the left upper quadrant)
Rectal: Other (Dark burgundy stool in the rectal vault)
Extremities: No Edema
Neuro: Non Focal
[2025-03-25] MEDS: LANOXIN 125 MCG PO (12:01)
[2025-03-25] MEDS: FLAGYL 250 MG 50 IV ×2 (12:42→21:57)
[2025-03-25] MEDS: LEVAQUIN 100 IV (13:14)
[2025-03-25 15:15] VITALS: BP 127/50
--- NOTE | 2025-03-25 15:31 | W.PN.HOSP.TC ---
Addendum entered and electronically signed by Jm Driscoll MD 03/27/25 16:20:
Underweight
Acute blood loss anemia with baseline normocytic anemia
Original Note:
Today's Communication/Plan
-
Assessment / Plan
Assessment / Plan
NAD
Scleral Anicteric
MMM
No JVD
CTABL
RRR, S1/S2
Soft, NT, ND, BS+
Warm, Dry
AAOx3
Calm
Hepatic flexure colitis noted on CT per GI
Started on levofloxacin and Flagyl
IV fluconazole discontinued as low clinical suspicion for esophagitis at this time
GI considering limited colonoscopy/flex sig
Acute Lower GI Bleed
Per GI burgundy stool in rectal vault
Repeat CBC
Hemoglobin remained stable
S/p 1 unit PRBC
Chronic Normocytic Anemia
-Hgb is currently stable but suspect will trend down in setting of GI bleed
- iron studies Fe sat 33%, Ferritin 173
-Blood consent obtained and scanned into chart
Paroxysmal Atrial Fibrillation / Flutter / Tachycardia s/p Permanent Pacemaker
-Patient has not been on anticoagulation since Oct 2023 due to bleeding/fall risk
-Continue digoxin, diltiazem and metoprolol
Chronic HFpEF
-Hold Lasix and Farxiga
-Monitor Daily Weights
potential resumption next 24-48 hrs
Essential Hypertension
-Continue diltiazem and metoprolol with hold parameters
Hyperlipidemia
-Continue atorvastatin
Post-Surgical Hypothyroidism
-Continue levothyroxine
Depression
-Continue sertraline
Anticipated Discharge: > 48 hours
Subjective/Interval History
-
Date of Service: March 25, 2025
Seen and examined. No new complaints. No acute overnight events.
Continues to have left lower quadrant pain
Tolerating barium esophagram well
Laying in bedside chair fully reclined
Objective Data
-
Labs:
Laboratory Results
03/25/25
06:09
WBC 5.6
Hgb 8.6 L
Hct 27.3 L
Plt Count 141
Sodium 143
Potassium 4.0
Chloride 104
Carbon Dioxide 34 H
BUN 18 H
Creatinine 1.1 H
Glucose 94
Calcium 10.0
Vital Signs:
Vital Signs
Temp Pulse Resp BP Pulse Ox
97.9 F 70 18 127/50 95
03/25/25 15:15 03/25/25 15:15 03/25/25 15:15 03/25/25 15:15 03/25/25 15:15
I&O
03/24/25 03/25/25 03/26/25
06:59 06:59 06:59
Intake Total 1380 / 1380 240 / 240
Balance 1380 / 1380 240 / 240
[2025-03-25] MEDS: LIPITOR 40 MG PO (17:15)
[2025-03-25 19:20] VITALS: BP 146/51
[2025-03-25] MEDS: ZOLOFT 100 MG PO (22:00)
[2025-03-25] MEDS: XALATAN OPHTHALMIC SOLUTION 1 DROP RIGHT EYE (22:01)
[2025-03-25 23:30] VITALS: BP 161/60
[2025-03-26 03:35] VITALS: BP 161/63
[2025-03-26] MEDS: FLAGYL 250 MG 50 IV ×2 (04:21→12:56)
[2025-03-26] MEDS: SYNTHROID 125 MCG PO (04:22)
[2025-03-26 07:20] VITALS: BP 141/55
[2025-03-26 09:31] LABS: Hematocrit 26.9 % (37.0-47.0); Hemoglobin 8.7 g/dL (12.0-16.0); Mean Corp Hgb Conc. 32.3 g/dL (33.0-37.0); Mean Corpuscular Hgb 32.1 pg (27.0-31.0); Mean Corpuscular Volume 99.3 fL (81.0-99.0); Mean Platelet Volume 10.6 fL (7.4-10.4); Platelet Count 131 10^3/uL (130-400); Red Blood Cell Count 2.71 10^6/uL (4.20-5.40); Red Cell Dist. Width 13.4 % (11.5-14.5); White Blood Cell Count 5.2 10^3/uL (4.8-10.8)
[2025-03-26] MEDS: LOPRESSOR 25 MG PO (09:37)
[2025-03-26] MEDS: CARDIZEM CD 180 MG PO (09:39)
[2025-03-26 09:46] LABS: Blood Urea Nitrogen 18 mg/dl (7-17); Calcium 9.8 mg/dl (8.4-10.2); Carbon Dioxide 34 mmol/L (22-30); Chloride 103 mmol/L (98-107); Estimated Creatinine Clearance 27 ml/min; Glucose 95 mg/dl (70-99); Potassium 3.9 mmol/L (3.5-5.1); Sodium 142 mmol/L (135-145); eGFR 48.63
[2025-03-26 11:15] VITALS: BP 123/53
--- NOTE | 2025-03-26 11:22 | VNURNOTE ---
Home Health Liaison met with patient at bedside to discuss [facility] nurse/therapy, visits, schedule and homebound status. Patient is familiar with [facility] services and agreeable. She understands that visits at home will be 2-3 x per week to assess and
teach medical management. Patient is aware that [facility] will contact them for start of care in 1-2 days after discharge from .
[facility] referral accepted in [facility].
[2025-03-26] MEDS: LANOXIN 125 MCG PO (12:57)
[2025-03-26] MEDS: LEVAQUIN 50 IV (12:58)
--- NOTE | 2025-03-26 13:23 | W.PN.GI.CBS2 ---
Today's Communication / Plan
-
Low Residual diet
cont antibiotics
Monitor H&H
Assessment / Plan
-
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
bright red blood per rectum. We are asked to evaluate for acute lower GI bleed. Patient with 1 episode of bright red blood per rectum. None since arrival. She has some mild upper abdominal discomfort. She states this has been occurring on and
off for couple months. Not associated with any other symptoms in particular. She is on oral iron. She is not on any anticoagulation or antiplatelet therapy. She denies any NSAIDs. Currently WBC 5.8, hemoglobin 9.2, hematocrit 21.9, platelets
141. Patient's baseline hemoglobin is in the 9 range. The patient is agreeable to blood products if needed. Sodium 143, potassium 4.6, BUN 35, creatinine 1.3, iron studies pending CTA of the abdomen and pelvis was performed that shows findings
suspicious for small volume active bleeding in the distal transverse colon. Large volume colonic stool including solid and liquid stool. (Other details from imaging will be provided above). Patient has been NPO since last evening. VSS, patient is
beta blocked.
Impression:
Active acute GI bleed with CT angio positive in the distal transverse colon.
Mild upper abdominal discomfort
Large volume colonic stool solid and liquid.
Constipation since starting Farxiga with stool softener as needed
Chronic anemia on oral iron
03/21/2025: IR unable to find bleed found on CT angio
03/22/25: Hemoglobin on 03/21/2025 9.2, baseline in the nines
-- Yesterday evening hemoglobin 8.1, this morning 7.2
-- Will check stat hemoglobin now. Patient is hemodynamically stable. Will give 1 unit of blood after the hemoglobin drawn
-- Okay for full liquids right now
Last colonoscopy in 2021 with sigmoid diverticulosis otherwise redundant--
-- Ensure she has 2 good IVs
03/23/25: No further bleeding since the 1 episode yesterday and hemoglobin responded too well to the 1 unit of blood. The 6.4 was likely false
6.4-8.1 with 1 unit
Will advance diet to low residue
She does have chronic upper abdominal discomfort which she states has been for years.
Reviewed her imaging again this morning -she does have some hyperemia and wall thickening in the distal transverse colon which fits with her location of discomfort
-- If her discomfort continues or worsens would repeat CT scan with oral contrast
03/24/2025 patient's main complaint is now odynophagia with solid foods she points to her chest when swallowing
Patient states oropharyngeal candidiasis prior to coming in
I am going to empirically treat her with fluconazole and get an esophagram tomorrow, n.p.o. after midnight for esophagram
No further bleeding hemoglobin stable
03/25/2025 -patient had burgundy overnight. On rectal exam has soft burgundy stool in the rectal vault questionable residual considering the stability of her hemoglobin -
-- Still with significant left upper quadrant pain
--In the setting of her getting barium with the esophagram and borderline kidney function we will hold off on a CT scan but I am going to empirically treat her for the mild thickening around the splenic flexure that I see on CT scan with antibiotics
Starting Levaquin and Flagyl in the setting of her penicillin allergy
I stop the fluconazole as the mucosa on the esophagram looks very normal
Esophagram is normal other than some mild slow motility
Restart low residue diet
Discussed potentially doing a extended flexible sigmoidoscopy but patient is unwilling to do any type of prep for colonoscopy -can do some mag citrate and enemas -will see how she does
Patient is stable for physical therapy at this point
-- Spoke to daughter, Edgard over the phone
03/26/2025
Hb stable. small Dark burgundy stool likely residual. Tolerating diet. abdominal pain is better . patient would like to hold off on invasive testing including colonoscopy/ flex sig
plan
Continue low residual diet
continue antibiotics for total of 7 days
Monitor H&H
patient would like to hold off on invasive testing including colonoscopy/ flex sig in the future
No further recommendation at this point. Will sign off. Please call us back if any questions
Total Time Spent with Patient (in minutes): 35
Subjective
Subjective
Date of Service: March 26, 2025
Abdominal pain is better. Tolerating diet
Objective
Data Reviewed
Laboratory Data:
Laboratory Results
03/26/25 09:21
03/26/25 09:21
Laboratory Results
PT 14.9 Sec (11.4-14.6) H 03/21/25 14:42
INR 1.12 03/21/25 14:42
Vital Signs and I&O:
Vital Signs
Temp Pulse Resp BP Pulse Ox
98.2 F 62 16 123/53 97
03/26/25 11:15 03/26/25 12:57 03/26/25 11:15 03/26/25 11:15 03/26/25 11:15
I&O
03/25/25 03/26/25 03/27/25
06:59 06:59 06:59
Intake Total 240 / 240 700 / 700
Balance 240 / 240 700 / 700
Physical Exam
Physical Exam
GI: Soft, Non Distended and Tender (Mild tenderness left upper quadrant on deep palpation)
--- NOTE | 2025-03-26 13:51 | PN.CDI ---
CDI
- -
CDI:
Physician Documentation Request
Admit Date: 03/21/25 13:23
Dear Doctor Americo,
Clinical Indicators:
Height: 5 ft 3.75 in
Weight: 103 lbs
BMI: 17.8
Other Clinical Notes:03/25 note/assessment: 'BMI: 17.8 (underweight)'
If possible, please provide an associated diagnosis related to the abnormal BMI< or = to 19), such as:
Underweight
BMI is not significant
Other, please specify
Use of terms such as suspected, likely, concern for, or probable (associated with a specific diagnosis that is being evaluated, monitored, or treated as if it exists) are acceptable and can be coded in the inpatient setting, when documented at the
time of discharge.
Thank you,
ZACKERY Peralta RN
CDI Specialist
available via tiger text
Please use your independent medical judgment in providing your response.
--- NOTE | 2025-03-26 13:55 | PN.CDI ---
CDI
- -
CDI:
Physician Documentation Request
Admit Date: 03/21/25 13:23
Dear Doctor Americo,
Clinical Indicators:
Patient admitted with rectal bleeding.
CTA Report, 'Findings suspicious for small volume active bleeding in the distal transverse colon.'
5/2 PRBCs 1 units transfused.
5/5 PN, 'Normocytic Anemia-Hgb is currently stable but suspect will trend down in setting of GI bleed'
03/21/25 03/21/25 03/22/25
09:43 17:05 10:03
Hgb 9.2 L 8.0 L 7.2 L
Hct 29.1 L 24.2 L 22.6 L
Based on the above, could you clarify, in your progress note, which of the following is the most likely type of anemia you are evaluating, monitoring and/or treating?
Acute blood loss anemia with baseline normocytic anemia
Normocytic anemia only
Other, please specify
Use of terms such as suspected, likely, concern for, or probable (associated with a specific diagnosis that is being evaluated, monitored, or treated as if it exists) are acceptable and can be coded in the inpatient setting, when documented at the
time of discharge.
Thank you,
ZACKERY Peralta RN
CDI Specialist
available via tiger text
Please use your independent medical judgment in providing your response.
--- NOTE | 2025-03-26 14:05 | CM ---
Addendum entered by Naomi Caballero RN 03/26/25 15:01:
IMM reviewed.
Original Note:
Reviewed the chart notes. CM continues to be available to patient/family and is monitoring medical plan for needs at discharge.
Plan: Discharge to home [facility] when medically stable.
[2025-03-26 15:10] VITALS: BP 149/74
--- NOTE | 2025-03-26 15:14 | W.DCSUMMARY ---
Discharge Summary
Discharge Data
Date of Admission: 03/21/25
Date of Discharge: 03/26/25
-
Pending Results: No
Hospital Course
89 y/o female past medical history of paroxysmal atrial fibrillation no longer anticoagulation, chronic heart failure, hypertension, and chronic anemia
Presented for acute onset of bright red blood per rectum requiring 1 unit of blood transfusion. S/p CT angio GI bleeding study that was positive for distal transverse colon bleed. IR unable to find bleed to stop it. Hemoglobin remained stable.
And was followed by gastroenterology. Recommended a limited colonoscopy/full colonoscopy however declined this intervention at this time. On 03/25 was started on Levaquin and Flagyl for potential colitis and fluconazole was discontinued as
esophagram was normal.
Will require repeat CBC in 1 week with PCP
CTAP
IMPRESSION:
Findings suspicious for small volume active bleeding in the distal transverse colon.
Large volume colonic stool including solid and liquid stool.
Cholelithiasis.
Small simple right renal cyst. Additional subcentimeter low-attenuation right renal lesion too small to characterize.
Esophogram
IMPRESSION:
Slightly decreased esophageal motility.
No esophageal mass, ulcer or obstruction.
Was seen and examined on the day of discharge which was 03/26
tolerating diet well
sitting on edge of bedside
no complaints
does not want c-scope at this time
NAD
Scleral Anicteric
MMM
No JVD
CTABL
RRR, S1/S2
Soft, NT, ND, BS+
Warm, Dry
AAOx3
Calm
Hepatic flexure colitis noted on CT per GI
Started on levofloxacin and Flagyl
IV fluconazole discontinued as low clinical suspicion for esophagitis at this time
GI considering limited colonoscopy/flex sig
Acute Lower GI Bleed
Per GI burgundy stool in rectal vault
Repeat CBC
Hemoglobin remained stable
S/p 1 unit PRBC
Chronic Normocytic Anemia
-Hgb is currently stable but suspect will trend down in setting of GI bleed
- iron studies Fe sat 33%, Ferritin 173
-Blood consent obtained and scanned into chart
Paroxysmal Atrial Fibrillation / Flutter / Tachycardia s/p Permanent Pacemaker
-Patient has not been on anticoagulation since Oct 2023 due to bleeding/fall risk
-Continue digoxin, diltiazem and metoprolol
Chronic HFpEF
-Hold Lasix and Farxiga
-Monitor Daily Weights
Resume tomorrow
Essential Hypertension
-Continue diltiazem and metoprolol with hold parameters
Hyperlipidemia
-Continue atorvastatin
Post-Surgical Hypothyroidism
-Continue levothyroxine
Discharge Plan
-
Patient Disposition: Home with Home Care
Discharge Diagnosis/Procedures: GI Bleed
Condition: Good
Diet: As tolerated and Low Residue
Activity: As tolerated
Blood Work: CBC in one week with PCP
Other Services: VN
Activity Restrictions/Additional Instructions:
Presented for acute onset of bright red blood per rectum requiring 1 unit of blood transfusion. S/p CT angio GI bleeding study that was positive for distal transverse colon bleed. IR unable to find bleed to stop it. Hemoglobin remained stable.
And was followed by gastroenterology. Recommended a limited colonoscopy/full colonoscopy however declined this intervention at this time. On 03/25 was started on Levaquin and Flagyl for potential colitis and fluconazole was discontinued as
esophagram was normal.
Will require repeat CBC in 1 week with PCP
CTAP
IMPRESSION:
Findings suspicious for small volume active bleeding in the distal transverse colon.
Large volume colonic stool including solid and liquid stool.
Cholelithiasis.
Small simple right renal cyst. Additional subcentimeter low-attenuation right renal lesion too small to characterize.
Esophogram
IMPRESSION:
Slightly decreased esophageal motility.
No esophageal mass, ulcer or obstruction.
Referrals:
Chapito Finn MD [Active] - in one to two weeks
Gema Wall DO [Family Provider] -
Prescriptions:
New
levofloxacin 500 mg tablet
500 mg PO Q24H 5 Days Qty: 5 0RF
metronidazole 500 mg tablet
500 mg PO Q8H Qty: 15 0RF
Continued
latanoprost 0.005 % drops
1 drp RIGHT EYE HS
sertraline 100 mg Tablet
100 mg PO HS
levothyroxine 125 mcg tablet
125 mcg PO DAILY AT 0700
docusate sodium [Stool Softener] 100 mg Capsule
100 mg PO BID
digoxin 125 mcg (0.125 mg) tablet
125 mcg PO DAILY
cholecalciferol (vitamin D3) [Vitamin D3] 25 mcg (1,000 unit) Tablet
25 mcg PO QPM
dapagliflozin propanediol [Farxiga] 10 mg Tablet
10 mg PO DAILY 30 Days Qty: 30 0RF
atorvastatin 40 mg Tablet
40 mg PO QPM 30 Days Qty: 30 0RF
ferrous sulfate [FeroSul] 325 mg (65 mg iron) Tablet
325 mg PO DAILY 100 Days Qty: 100 0RF
furosemide 20 mg tablet
20 mg PO DAILYPRN PRN (Reason: edema)
diltiazem HCl 180 mg capsule,extended release 24hr
180 mg PO DAILY
metoprolol tartrate 25 mg Tablet
25 mg PO BID
Discharge Orders:
Discharge Patient (As Directed); Ordered 03/26/25
Ordered By: Jm Driscoll
Discharge Date and Time
Print Language: MALAWIAN
== END 2025-03-26 17:59 | disposition home health service (06) | DRG 378 ==
LOC: 2 SOUTH 13:23
PROVIDERS: Emergency Medicine; Internal Medicine; Nurse Practitioner Family; Physician Assistant Medical; Radiology Vascular & Interventional Radiology; ADMITTING PHYSICIAN Hospitalist; ATTENDING PHYSICIAN Hospitalist; CONSULT PHYSICIAN Internal Medicine; EMERGENCY PHYSICIAN Emergency Medicine; FAMILY PHYSICIAN Family Medicine
PROC: B4151ZZ Fluoroscopy of Inferior Mesenteric Artery using Low Osmolar Contrast (ICD-10-PCS; 2025-03-21)
PROC: B4141ZZ Fluoroscopy of Superior Mesenteric Artery using Low Osmolar Contrast (ICD-10-PCS; 2025-03-21)
PROC: 30233N1 Transfusion of Nonautologous Red Blood Cells into Peripheral Vein, Percutaneous Approach (ICD-10-PCS; 2025-03-22)
DX: K92.2 Gastrointestinal hemorrhage, unspecified (principal); D62 Acute posthemorrhagic anemia; I13.0 Hypertensive heart and chronic kidney disease with heart failure and stage 1 through stage 4 chronic kidney disease, or unspecified chronic kidney disease; I50.32 Chronic diastolic (congestive) heart failure; Z68.1 Body mass index [BMI] 19.9 or less, adult; I48.0 Paroxysmal atrial fibrillation; K52.9 Noninfective gastroenteritis and colitis, unspecified; N18.32 Chronic kidney disease, stage 3b; R63.6 Underweight
CPT/HCPCS: 36246; 74174; 74221; 75726; 76937; 80048; 82607; 82728; 82746; 83540; 83550; 85014; 85018; 85025; 85027; 85610; 86850; 86900; 86901; 86920; 97163; 97167; 97530; 97535; 99152; 99153; 99285; C1769; P9016; Q9967

== ENCOUNTER → 2025-04-26 13:08 | Outpatient (REF) | payer MEDICARE, OTHER, SELFPAY ==
[2025-04-26 14:24] LABS: % Basophils 0.8 % (0-2); % Eosinophils 3.4 % (0-6); % Immature Granulocytes 0.4 % (0-0.5); % Lymphocytes 19.3 % (20.5-51.1); % Monocytes 10.3 % (1.7-9.3); % Neutrophils 65.8 % (42.2-75.2); Absolute Eosinophils 0.2 10^3/uL (0-0.7); Absolute Monocytes 0.5 10^3/uL (0.1-0.6); Absolute Neutrophils 3.2 10^3/uL (1.4-6.5); Hematocrit 29.2 % (37.0-47.0); Hemoglobin 9.2 g/dL (12.0-16.0); Mean Corp Hgb Conc. 31.5 g/dL (33.0-37.0); Mean Corpuscular Hgb 31.3 pg (27.0-31.0); Mean Corpuscular Volume 99.3 fL (81.0-99.0); Mean Platelet Volume 10.6 fL (7.4-10.4); Nucleated Red Blood Cells % 0 %; Platelet Count 146 10^3/uL (130-400); Red Blood Cell Count 2.94 10^6/uL (4.20-5.40); Red Cell Dist. Width 13.4 % (11.5-14.5); White Blood Cell Count 4.9 10^3/uL (4.8-10.8)
== END ==
LOC: REG 13:08
PROVIDERS: ATTENDING PHYSICIAN Specialist; FAMILY PHYSICIAN Family Medicine
DX: K92.2 Gastrointestinal hemorrhage, unspecified (principal)
CPT/HCPCS: 36415; 85025

== ENCOUNTER → 2025-06-18 08:16 | Outpatient (REF) | payer MEDICARE, OTHER, SELFPAY | LOC: HWRCS 08:16 | PROVIDERS: ATTENDING PHYSICIAN Internal Medicine Cardiovascular Disease; FAMILY PHYSICIAN Family Medicine | DX: I35.0 Nonrheumatic aortic (valve) stenosis (principal); I48.91 Unspecified atrial fibrillation; R00.2 Palpitations; I50.32 Chronic diastolic (congestive) heart failure | CPT/HCPCS: 93306 ==

== ENCOUNTER → 2025-08-13 07:38 | Outpatient (REF) | payer MEDICARE, OTHER, SELFPAY ==
[2025-08-13 09:26] LABS: Hematocrit 29.9 % (37.0-47.0); Hemoglobin 9.2 g/dL (12.0-16.0); Mean Corp Hgb Conc. 30.8 g/dL (33.0-37.0); Mean Corpuscular Volume 100.0 fL (81.0-99.0); Nucleated Red Blood Cells % 0 %; Platelet Count 120 10^3/uL (130-400); Red Cell Dist. Width 13.7 % (11.5-14.5)
[2025-08-13 09:31] LABS: Iron 65 ug/dl (37-170)
[2025-08-13 09:40] LABS: Total Iron Binding Capacity 227 ug/dl (265-497)
[2025-08-13 10:23] LABS: Ferritin 117.0 ng/ml (11.1-264.0)
[2025-08-13 10:55] LABS: Folate 14.7 ng/ml (2.76-20); Vitamin B12 417 pg/ml (239-931)
== END ==
LOC: RAD 07:38
PROVIDERS: ATTENDING PHYSICIAN Specialist; FAMILY PHYSICIAN Family Medicine
DX: R09.89 Other specified symptoms and signs involving the circulatory and respiratory systems (principal); D64.9 Anemia, unspecified; I10 Essential (primary) hypertension; Z79.899 Other long term (current) drug therapy
CPT/HCPCS: 36415; 82607; 82728; 82746; 83540; 83550; 85025; 93880

== ENCOUNTER → 2025-10-19 09:38 | Outpatient (REF) | payer MEDICARE, OTHER, SELFPAY ==
[2025-10-19 11:09] LABS: Urine Character Clear (Clear)
[2025-10-19 11:20] LABS: Urine Red Blood Cell 0-2 /HPF (0-2)
[2025-10-19 11:21] LABS: Hematocrit 31.8 % (37.0-47.0); Hemoglobin 9.5 g/dL (12.0-16.0); Mean Corp Hgb Conc. 29.9 g/dL (33.0-37.0); Mean Corpuscular Volume 101.6 fL (81.0-99.0); Nucleated Red Blood Cells % 0 %; Platelet Count 137 10^3/uL (130-400); Red Cell Dist. Width 13.5 % (11.5-14.5); Urine White Cell 16-20 /HPF (0-5)
[2025-10-19 11:38] LABS: ALT (SGPT) 30 U/L (0-35); AST (SGOT) 33 U/L (14-36); Albumin 4.6 g/dl (3.5-5.0); Alkaline Phosphatase 71 U/L (38-126); Blood Urea Nitrogen 26 mg/dl (7-17); Calcium 10.3 mg/dl (8.4-10.2); Chloride 99 mmol/L (98-107); Glucose 88 mg/dl (70-99); HDL Cholesterol 45 mg/dl; LDL Cholesterol, Calculated 33 mg/dl; Potassium 4.2 mmol/L (3.5-5.1); Sodium 139 mmol/L (135-145); Total Protein 8.3 g/dl (6.3-8.2); Very Low Density Lipoprotein 10 mg/dl (0-30); eGFR 39.55
[2025-10-19 11:46] LABS: Carbon Dioxide 33 mmol/L (22-30)
[2025-10-19 13:49] LABS: Glycohemoglobin (HgbA1c) 5.4 % (4.0-5.9)
== END ==
LOC: REG 09:38
PROVIDERS: ATTENDING PHYSICIAN Family Medicine
DX: R26.89 Other abnormalities of gait and mobility (principal); Z91.81 History of falling; D50.0 Iron deficiency anemia secondary to blood loss (chronic); Z71.89 Other specified counseling; Z13.9 Encounter for screening, unspecified; Z68.20 Body mass index [BMI] 20.0-20.9, adult; Z87.19 Personal history of other diseases of the digestive system; R10.13 Epigastric pain; I10 Essential (primary) hypertension; I48.19 Other persistent atrial fibrillation; Z95.0 Presence of cardiac pacemaker; E03.9 Hypothyroidism, unspecified; E21.3 Hyperparathyroidism, unspecified; N18.32 Chronic kidney disease, stage 3b; G47.33 Obstructive sleep apnea (adult) (pediatric); I35.0 Nonrheumatic aortic (valve) stenosis; R09.89 Other specified symptoms and signs involving the circulatory and respiratory systems; I50.32 Chronic diastolic (congestive) heart failure; I25.10 Atherosclerotic heart disease of native coronary artery without angina pectoris; Z79.899 Other long term (current) drug therapy
CPT/HCPCS: 36415; 80053; 80061; 81003; 81015; 83036; 84443; 85025

== ENCOUNTER → 2025-11-04 07:58 | Outpatient (REF) | payer MEDICARE, OTHER, SELFPAY | LOC: RAD 07:58 | PROVIDERS: ATTENDING PHYSICIAN Family Medicine | DX: R26.89 Other abnormalities of gait and mobility (principal) | CPT/HCPCS: 70496; 70498; Q9967 ==

== ENCOUNTER 2025-11-11 21:57 | Emergency (ER) | payer MEDICARE, OTHER, SELFPAY ==
[2025-11-11 22:02] VITALS: BMI 18.8
[2025-11-11 22:03] VITALS: BP 208/67
[2025-11-11 22:12] VITALS: BP 194/61
[2025-11-11 23:00] VITALS: BP 172/62
[2025-11-12] VITALS: BP 170/65
[2025-11-12 01:00] VITALS: BP 168/72
--- NOTE | 2025-11-12 01:05 | ED.GENMED ---
History of Present Illness
General
Chief Complaint: Fall
Source: patient
Exam Limitations: none
Time Seen by Provider: 11/12/25 01:00
Nursing documentation reviewed up to this point in time: agreed with
History of Present Illness
History of Present Illness:
89-year-old female with a past medical history of A-fib (no blood thinner), HTN, pacemaker in place, hypothyroidism, presents to the ER today with concerns of brief headache following a fall. She reports that she was sleeping in the recliner and
she reports that she will fell out of the recliner in her sleep. She is not sure if she had a dream that woke her up where she was trying to get up to use the bathroom. She reports that when she woke up she fell forward and hit her head. She is
also complaining of rib discomfort on the left side. No shortness of breath. No pain with deep inspiration. She did not lose consciousness. She has no nausea or vomiting. No neck pain at this time. Family reports that she has had recurrent
falls in the past few months and is being worked up by her primary care provider for dizziness and balance issues. Currently, she denies dizziness, lightheadedness, chest pain. She denies abdominal pain.
Tetanus up to date.
Past History
Past History
ED Past Medical History: Arrthythmia (Atrial fib), Valvular disease and Hypothyroidism
ED Past Surgical History: Appendectomy and Cardiac (Pacemaker)
Social History
Tobacco: Non-smoker
Alcohol: None
Personal:
Living: with family
Review of Systems
Review of Systems
All Other Systems: ROS reviewed and negative except as documented in HPI and ROS
Phy Exam
Physical Exam
Physical Exam:
General: Patient is well appearing and in no acute distress; non-toxic
Skin: Warm and dry, no rashes or lesions
Head: 2 cm laceration to the left scalp
No tenderness to palpation of the facial bones
Eyes: Sclera non-icteric. EOMs intact.
Cardiac: Regular rate and rhythm, mild tenderness to palpation of the left external chest wall, no crepitus
Peripheral Vascular: No lower extremity swelling or edema
Pulm: Normal respiratory effort, no wheezes, rales, or rhonchi
Abdomen: No abdominal tenderness to palpation
Musculoskeletal: No tenderness palpation of the right wrist, right elbow, right shoulder. No pain with passive range of motion. No visible bony deformity.
Neuro: CN II-XII intact, no focal neurologic deficits.
Psychiatric: Appropriate mood and affect.
Course
Orders/Labs/Results
Orders:
Orders
11/12/25 01:26
CT Cervical Spine W/o Iv Contr Urgent
Comment:
Reason For Exam: neck pain following trauma
CT Chest W/o Iv Contrast Urgent
Comment:
Reason For Exam: left sided rib pain
CT Head W/o Iv Contrast Urgent
Comment:
Reason For Exam: headache following trauma
11/12/25 01:30
Interrogate Pacemaker- Treatment ONCE
Vital Signs
Initial and Last Documented VS:
Initial Vital Signs
Temp Pulse Resp Pulse Ox
98.4 F 67 16 96
11/11/25 22:02 11/11/25 22:02 11/11/25 22:02 11/11/25 22:02
Last Documented Vital Signs
Temp Pulse Resp BP Pulse Ox
98.4 F 68 17 168/72 94
11/11/25 22:02 11/12/25 01:00 11/12/25 01:00 11/12/25 01:00 11/12/25 01:05
Procedures
Laceration Closure
left scalp:
Status of Wound: clean
Size of Wound in cm: 2
Description of Wound Edges: sharp
Preparation: cleaned with saline
Anesthesia: 1% Lidocaine with epi
Revision/Debridement: routine- no revision
Wound exploration: explored to base- no FB
Type of Closure: single layer closure
Skin Closure Material: skin keiry
Number of sutures: 4
MDM/Problems Addressed
Differential Diagnosis Includes:
ddx include scalp contusion, intracerebral hemorrhage, cervical spine fracture, rib fracture
MDM/Problems Addressed:
89-year-old female with past history of A-fib, hypertension, pacemaker in place presents ER today with concerns of a fall. She fell out of her recliner while she was sleeping. On physical exam, she has a laceration is a scalp which was repaired
with keiry. Her tetanus is up-to-date. Her CT scans show no signs of intracranial bleeding or cervical fracture. She is evidence of a fracture. Reviewed patient's pacemaker interrogation which revealed no evidence of arrhythmia. Device is
functioning as programmed. Patient stable for discharge. 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
Chronic conditions affecting care:
A-fib, hypertension, pacemaker
*Pulse Oximetry
SaO2: 94
Oxygen Mode of Delivery: Room air
Patient hypoxic: no
*Critical Care Note
Total Time (30-74mins, 75-104mins- exclusive of procedures): Not Applicable
ED Attending Note
-
Portions of this chart may have been created with voice recognition software.� Occasional wrong word or��sound alike� substitutions may have occurred due to the inherent limitations of voice recognition software.
Discharge Plan
Departure
Patient Disposition: Home (Routine Discharge)
Date of Disposition: 11/12/25
Time of Disposition: 04:05
Patient with high blood pressure during this ER visit?: Yes
Condition: Good
Discharge Problem:
Fall, Laceration of scalp
Instructions: Wound Care (DC), Laceration Repair With Stitches (DC)
Prescriptions:
No Action
latanoprost 0.005 % drops
1 drp RIGHT EYE HS
sertraline 100 mg Tablet
100 mg PO HS
levothyroxine 125 mcg tablet
125 mcg PO DAILY AT 0700
docusate sodium [Stool Softener] 100 mg Capsule
100 mg PO BID
digoxin 125 mcg (0.125 mg) tablet
125 mcg PO DAILY
cholecalciferol (vitamin D3) [Vitamin D3] 25 mcg (1,000 unit) Tablet
25 mcg PO QPM
dapagliflozin propanediol [Farxiga] 10 mg Tablet
10 mg PO DAILY 30 Days Qty: 30 0RF
atorvastatin 40 mg Tablet
40 mg PO QPM 30 Days Qty: 30 0RF
ferrous sulfate [FeroSul] 325 mg (65 mg iron) Tablet
325 mg PO DAILY 100 Days Qty: 100 0RF
furosemide 20 mg tablet
20 mg PO DAILYPRN PRN (Reason: edema)
diltiazem HCl 180 mg capsule,extended release 24hr
180 mg PO DAILY
metoprolol tartrate 25 mg Tablet
25 mg PO BID
levofloxacin 500 mg tablet
500 mg PO Q24H 5 Days Qty: 5 0RF
metronidazole 500 mg tablet
500 mg PO Q8H Qty: 15 0RF
Referrals:
Gema Wall DO [Family Provider, Family Practice]
Activity Restrictions/Additional Instructions:
As discussed, you can have the keiry removed in 7-10 days. You can report to urgent care, primary care provider, or the ER to have them removed. Please return should you develop purulent drainage from the wound, increasing pain, surrounding
redness, fevers or chills.
Please follow up with Dr. Riley and your PCP.
Interventions
Interventions:
*General Assessment Last Done: 11/12/25 04:17
*Neglect/Abuse Screening Last Done: 11/11/25 22:08
*ED COVID-19 Vaccine History Last Done: 11/11/25 22:05
*ED Influenza Vaccine History Last Done: 11/11/25 22:08
[facility] Risk Assessment Tool Last Done: 11/11/25 22:09
*Risk Screen - Suicide (C-SSRS) Last Done: 11/11/25 22:08
*Nursing Disposition Last Done: 11/12/25 04:17
ED-Musculoskeletal Assessment Last Done: 11/11/25 22:10
ED- Neurological Assessment Last Done: 11/11/25 22:10
ED-Skin Assessment Last Done: 11/11/25 22:10
Discharge Date and Time
Discharge Date/Time: 11/12/25 04:47
Print Language: SINHALA
== END 2025-11-12 04:47 | disposition home or self-care (01) ==
LOC: EMR 21:57
PROVIDERS: EMERGENCY PHYSICIAN Student in an Organized Health Care Education/Training Program; FAMILY PHYSICIAN Family Medicine
DX: S01.01XA Laceration without foreign body of scalp, initial encounter (principal); W07.XXXA Fall from chair, initial encounter; E03.9 Hypothyroidism, unspecified; I48.91 Unspecified atrial fibrillation; Z90.49 Acquired absence of other specified parts of digestive tract; Z95.0 Presence of cardiac pacemaker
CPT/HCPCS: 12001; 99284; 70450; 71250; 72125